=== PATIENT | female | born 1960 | race Caucasian/White ===

== ENCOUNTER 2022-08-28 18:42 | Emergency (ER) | payer BC, MEDICAID, SELFPAY ==
[2022-08-28 18:45] VITALS: BP 156/76; PULSE 58; RESP 16; TEMP 36.7; O2SAT 99; BMI 44.8
--- NOTE | 2022-08-28 19:06 | CRLHL7_ITS ---
For Patients: As a result of the Century Cures Act, medical imaging exams and procedure reports are released immediately into your electronic medical record. You may view this report before your referring provider. If you have questions, please contact your health care provider. INDICATION: Chest pain and dyspnea COMPARISON: December 25, 2010 TECHNIQUE: Two views of the chest were acquired FINDINGS: TUBES AND LINES: None. HEART AND MEDIASTINUM: The heart size is normal. The mediastinal contour appears normal for patient age.Sternotomy. Valve repair. LUNGS AND PLEURAL SPACES: The lungs appear normal.The pleural spaces are unremarkable. OSSEOUS STRUCTURES: Age-appropriate appearance. No acute focal finding. IMPRESSION: No evidence of active pulmonary disease. Dictated by Aman Nunez MD @ 08/28/2022 8:18:36 PM (Electronically Signed)
--- NOTE | 2022-08-28 19:09 | ED_ITS ---
HPI - General Adult General Chief complaint: Back Injury/Pain Stated complaint: breathing issues Time Seen by Provider: 08/28/22 18:44 History of Present Illness HPI narrative: This 61-year-old female comes in from clinic for evaluation because of pain across her back that radiates around to her left chest. This pain is been present for the past week. The patient states that she can reproduce the pain by taking a deep breath and by performing certain movements. She does not report any nausea, vomiting, lightheadedness, shortness of breath, diaphoresis, or exercise intolerance. She does have a history of a valve replacement. She states that she has a connective tissue disorder and reports a history of pericarditis. Her symptoms today are distinctly reproducible with deep breath and with certain movements. She arrives here with normal vital signs. Related Data Home Medications Medication Instructions Recorded Confirmed diltiazem HCl 120 mg 120 mg PO DAILY 08/28/22 08/28/22 capsule,extended release 24 hr duloxetine 20 mg capsule,delayed 20 mg PO DAILY 08/28/22 08/28/22 release levothyroxine 137 mcg tablet 137 mcg PO DAILY 08/28/22 08/28/22 warfarin 10 mg tablet mg PO 08/28/22 Previous Rx's Medication Instructions Recorded methylprednisolone 4 mg tablets in See Rx Instructions PO .COMPLEX 08/28/22 a dose pack (Medrol (Jay Jay)) #21 ea Allergies Allergy/AdvReac Type Severity Reaction Status Date / Time Latex, Natural Rubber Allergy Mild Itchiness Verified 08/28/22 18:53 morphine Allergy Mild Itchiness Verified 08/28/22 18:53 dairy AdvReac Mild Inflammatio Uncoded 08/28/22 18:53 n Review of Systems Status of ROS: Reports: 10 or more systems reviewed and unremarkable except as noted in History and below Narrative: Constitutional: No fevers, no weight gain or loss. Eyes: No discharge. No vision changes. HENT: No congestion, no sore throat, no ear pain. Cardiovascular: No palpitations. Chest: She reports pain across her back that wraps around to the left side of the chest. This pain is reproducible with deep breathing and with certain movements. Respiratory: No shortness of breath, no wheezes, no cough. Gastrointestinal: No abdominal pain, no vomiting, no diarrhea. Genitourinary: No dysuria, no hematuria. Musculoskeletal: Normal range of motion. Skin: No rashes, no pruritis. Neurological: No dizziness, weakness, sensory change, speech change. Endo/Heme/Allergies: No bruising or bleeding. No polydipsia. Pysch: no suicidality, no anxiety, no insomnia. All other systems reviewed and are negative. [facility] Social History Smoking Status: Never smoker Do you use any of these nicotine containing products: None Second hand tobacco smoke exposure: No How often do you have a drink containing alcohol: never AUDIT-C Alcohol total score: 0 Non-prescribed substance use: denies use Exam Narrative: Exam Narrative: Constitutional: Well-developed, well-nourished, no acute distress. HEENT: Normocephalic, atraumatic. Neck: Normal range of motion. Nontender. Supple. Heart: Regular. No murmurs. Normal rate. Intact distal pulses. Lungs: Clear to auscultation. No chest discomfort. No wheezes, rhonchi, or rales. Abdomen: Normal bowel sounds. Nontender. No rebound tenderness. Genitalia: Deferred. Back: No midline tenderness. Normal range of motion. Extremities: Normal range of motion. No injury. Skin: Intact. No rash. Warm. No erythema or pallor. Neurologic: No altered sensation. No weakness. Alert and oriented. Psychiatric: No suicidality. No anxiety or depression. No insomnia. Nursing notes and vitals signs are reviewed. Const: Vital Signs, click to edit/add: Vital Signs - 24 hr 08/28/22 18:45 Temperature 98.1 F Pulse Rate [Pulse Oximeter] 58 L Respiratory Rate 16 Blood Pressure [Ri ght Upper Arm] 156/76 H Pulse Oximetry 99 Oxygen Delivery Me thod Room Air Course Vital Signs Vital signs: Initial Vital Signs Temperature 98.1 F 08/28/22 18:45 Temperature Source Temporal Artery Scan 08/28/22 18:45 Pulse Rate 58 L 08/28/22 18:45 Respiratory Rate 16 08/28/22 18:45 Blood Pressure 156/76 H 08/28/22 18:45 Blood Pressure Mean 102 08/28/22 18:45 Blood Pressure Position Supine 08/28/22 18:45 Pulse Oximetry 99 08/28/22 18:45 Oxygen Delivery Method Room Air 08/28/22 18:45 Vital Signs Temperature 98.1 F 08/28/22 18:45 Pulse Rate 58 L 08/28/22 18:45 Respiratory Rate 16 08/28/22 18:45 Blood Pressure 156/76 H 08/28/22 18:45 Pulse Oximetry 99 08/28/22 18:45 Oxygen Delivery Method Room Air 08/28/22 18:45 Temperature 98.1 F 08/28/22 18:45 Pulse Rate 58 L 08/28/22 18:45 Respiratory Rate 16 08/28/22 18:45 Blood Pressure 156/76 H 08/28/22 18:45 Pulse Oximetry 99 08/28/22 18:45 Oxygen Delivery Method Room Air 08/28/22 18:45 Medical Decision Making MDM Narrative Medical decision making narrative: This patient comes in reporting reproducible pain across her back and into the left upper chest. She can reproduce this pain with a deep breath and with certain movements. She arrives with normal vital signs. 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 She is also had pericarditis in the past. EKG here shows normal sinus rhythm with no sign of ST or T-wave abnormalities. Labs are acquired and returned with troponin at 0, a normal B type natriuretic peptide, no leukocytosis. Her chest x-ray also shows no findings of acute cardiopulmonary disease. It is noted that her sed rate is elevated at 67 and her C reactive protein at 6.1. Her symptoms are reproducible suggesting chest wall etiology. Her elevated acute phase reactants may be a flare-up of her mixed connective tissue disorder. The patient did receive an oral dose of dexamethasone 10 mg and a prescription for Medrol Dosepak. I advised her to follow-up with her primary physician for ongoing management. Lab Data Labs: Lab Results 08/28/22 08/28/22 Range/Units 19:32 19:32 WBC 8.02 (4.50-11.00) K/uL RBC 4.32 (4.00-5.20) m/uL Hgb 11.3 L (12.0-16.0) gm/dL Hct 35.8 (33.0-51.0) % MCV 83 (80-100) fL MCH 26 (26-34) pg MCHC 32 (32-36) gm/dL RDW Coeff of Bozena 14.3 (11.5-15.5) % Plt Count 280 (140-440) K/uL Neut % (Auto) 76.7 H (42.0-72.0) % Lymph % (Auto) 16.0 L (20-44) % [place] % (Auto) 6.0 (0.0-11.0) % Eos % (Auto) 1.0 (0.0-7.0) % Baso % (Auto) 0.2 (0.0-3.0) % Neut # (Auto) 6.20 (1.7-7.0) K/uL Lymph # (Auto) 1.30 (0.90-2.90) K/uL [place] # (Auto) 0.50 (0.00-0.90) K/UL Eos # (Auto) 0.08 (0.00-0.50) K/uL Baso # (Auto) 0.02 (0.00-0.30) K/uL ESR 67 H (2-20) mm/hr INR 2.17 H (0.91-1.10) Sodium 137 (135-149) mmol/L Potassium 4.3 (3.6-5.1) mmol/L Chloride 102 (96-114) mmol/L Carbon Dioxide 31 (20-32) mmol/L BUN 13 (7-30) mg/dL Creatinine 1.0 (0.5-1.5) mg/dL Estimated Creat Clear 63.08 Estimated GFR 64 ml/min Glucose 97 (60-115) mg/dL Calcium 9.0 (8.4-10.6) mg/dL C-Reactive Protein 6.1 H (0.5-1.0) mg/dL NT-Pro-B Natriuret Pep 485 Cancelled pg/mL POC Troponin I 0.00 L (0.01-0.04) ng/ml Imaging Data Chest x-ray: Radiologist's impression: No evidence of active pulmonary disease. ECG Data Attestation: I personally reviewed and interpreted this ECG as follows: Interpretation: Normal sinus rhythm. Rate is 55 beats per minute. There are no ST or T-wave abnormalities. Discharge Plan Discharge Clinical Impression: Acute chest wall pain, Connective tissue disorder, Thoracic back pain Patient Disposition: Home, Self-Care Condition: Unchanged Additional Instructions: Take medication as prescribed. Follow up with primary physician for ongoing management. Return if worsening. Prescriptions: New methylprednisolone [Medrol (Jay Jay)] 4 mg tablets,dose pack See Rx Instructions .ROUTE .COMPLEX Qty: 21 0RF Rx Instructions: orally per package directions No Action levothyroxine 137 mcg tablet 137 mcg PO DAILY warfarin 10 mg tablet PO diltiazem HCl 120 mg capsule,extended release 24hr 120 mg PO DAILY duloxetine 20 mg capsule,delayed release(DR/EC) 20 mg PO DAILY Follow Up/Referrals: Dorota Loera MD [Primary Care Provider] - Stand Alone Forms: [employer] Info Instructions
[2022-08-28 19:41] LABS: Basophils Absolute Auto 0.02 K/uL (0.00-0.30); Basophils Percent Auto 0.2 % (0.0-3.0); Eosinophils Absolute Auto 0.08 K/uL (0.00-0.50); Hematocrit 35.8 % (33.0-51.0); Hemoglobin* 11.3 gm/dL (12.0-16.0); Immature Granulocytes Abs Auto 0.01 K/uL (0.00-0.30); Immature Granulocytes Pct Auto 0.1 %; Mean Corpuscular HGB Conc 32 gm/dL (32-36); Mean Corpuscular Hemoglobin 26 pg (26-34); Mean Corpuscular Volume 83 fL (80-100); Neutrophils Percent Auto 76.7 % (42.0-72.0); Platelet Count* 280 K/uL (140-440); RDW Coefficient of Variation % 14.3 % (11.5-15.5); Red Blood Count 4.32 m/uL (4.00-5.20); White Blood Count* 8.02 K/uL (4.50-11.00)
[2022-08-28 19:43] LABS: Slide Review Reflex No
[2022-08-28 19:51] LABS: Chloride* 102 mmol/L (96-114)
[2022-08-28 19:52] LABS: Potassium* 4.3 mmol/L (3.6-5.1); Sodium* 137 mmol/L (135-149)
[2022-08-28 19:54] LABS: Est. Creatinine Clearance* 63.08; Estimated Glomerular Filt Rate 64 ml/min
[2022-08-28 19:55] LABS: Blood Urea Nitrogen* 13 mg/dL (7-30); Carbon Dioxide* 31 mmol/L (20-32); Glucose* 97 mg/dL (60-115); INR 2.17 (0.91-1.10); Prothrombin Time 25.3 Seconds
[2022-08-28 19:58] LABS: C Reactive Protein* 6.1 mg/dL (0.5-1.0)
[2022-08-28 20:05] LABS: NT Pro B Type NatriureticPept* 485 pg/mL
[2022-08-28 20:22] LABS: Erythrocyte SedimentationRate* 67 mm/hr (2-20)
[2022-08-28] MEDS: dexAMETHasone 10 MG/ML inj PO (21:00)
[2022-08-28 21:11] VITALS: BP 135/78; PULSE 65; PULSE 84; RESP 16; TEMP 36.7; O2SAT 99
[2022-08-28 21:13] VITALS: BP 135/78; PULSE 65; PULSE 84; RESP 16; TEMP 36.7
== END 2022-08-28 21:13 | disposition home or self-care (01) ==
PROVIDERS: Emergency Provider Emergency Medicine Emergency Medical Services; PCP Family Medicine
DX: R07.89 Other chest pain (principal); M54.6 Pain in thoracic spine; M35.89 Other specified systemic involvement of connective tissue
CPT/HCPCS: 36415; 71046; 80048; 83880; 84484; 85025; 85610; 85651; 86140; 93005; 99284; J1100

== ENCOUNTER 2023-08-30 20:50 | Emergency (ER) | payer BC, SELFPAY ==
[2023-08-30 20:55] VITALS: BP 183/77; PULSE 55; RESP 16; TEMP 35.9; O2SAT 95; BMI 44.5
--- NOTE | 2023-08-30 21:06 | ED.HA ---
HPI - Headache General Time Seen by Provider: 21:06 Date Seen: 08/30/23 Chief Complaint: Headache/Migraine Stated Complaint: Headache Time Seen by Provider: 08/30/23 20:56 Source: patient and RN notes reviewed Mode of arrival: ambulatory Limitations: no limitations History of Present Illness HPI Narrative: This 62-year-old female is coming in with complaint of a headache in her frontal head associated with visual changes. She states that she was not having blurry vision it is like she could not get her eyes to focus, it was not double vision. She states her parents had history of strokes. She had the visual changes 1st, then developed the headache. She has history of migraines but this feels different, is never had visual issues like this. Her eyes have cleared already. This started around 815 tonight. We are seeing her about an hour later. She denies any acute fevers chills, had mild respiratory illness over week ago, no residual issues noted. She has noted no changes in her speech, again no true blurry or double vision. She just felt like her eyes would not focus together is the best she can explain it. There was never any incoordination or numbness tingling or weakness of extremities. Typically she will disuse Tylenol for her headache, has not taken anything. She is on Coumadin with aortic valve replacement and history of paroxysmal atrial fibrillation. She does have a connective tissue disorder. No trauma. MD elicited complaint: headache Related Data Home Medications Medication Instructions Recorded Confirmed diltiazem HCl 120 mg 120 mg PO DAILY 08/28/22 08/28/22 capsule,extended release 24 hr duloxetine 20 mg capsule,delayed 20 mg PO DAILY 08/28/22 08/28/22 release levothyroxine 137 mcg tablet 137 mcg PO DAILY 08/28/22 08/28/22 magnesium oxide 500 mg capsule 500 mg PO DAILY 08/28/22 08/28/22 warfarin 10 mg tablet 10 mg PO DIRECTED 08/28/22 08/28/22 Previous Rx's Medication Instructions Recorded methylprednisolone 4 mg tablets in See Rx Instructions PO .COMPLEX 08/28/22 a dose pack (Medrol (Jay Jay)) #21 ea Allergies Allergy/AdvReac Type Severity Reaction Status Date / Time Latex, Natural Rubber Allergy Mild Itchiness Verified 08/28/22 21:34 morphine Allergy Mild Itchiness Verified 08/28/22 21:34 lactase [From Dairy Aid] AdvReac Mild Gi Upset Verified 08/28/22 21:35 Review of Systems Status of ROS: Reports: 6 or more systems reviewed and unremarkable except as noted in History and below [facility] Medical History (Updated 08/30/23 @ 23:08 by Awilda Tomlin MD) Connective tissue disease ?M35.9 - Systemic involvement of connective tissue, unspecified (ICD-10) Kidney stone ?N20.0 - Calculus of kidney (ICD-10) Anticoagulation monitoring, INR range 2-3 ?Z79.01 - long term care social worker (current) use of anticoagulants (ICD-10) Subacute pericarditis ?I30.9 - Acute pericarditis, unspecified (ICD-10) Pericardial effusion, acute ?I30.9 - Acute pericarditis, unspecified (ICD-10) Pleural effusion ?J90 - Pleural effusion, not elsewhere classified (ICD-10) Vitamin D deficiency ?E55.9 - Vitamin D deficiency, unspecified (ICD-10) Paroxysmal A-fib ?I48.0 - Paroxysmal atrial fibrillation (ICD-10) Carpal tunnel syndrome ?G56.00 - Carpal tunnel syndrome, unspecified upper limb (ICD-10) Hypothyroidism ?E03.9 - Hypothyroidism, unspecified (ICD-10) Sleep apnea ?G47.30 - Sleep apnea, unspecified (ICD-10) Aortic valve stenosis ?I35.0 - Nonrheumatic aortic (valve) stenosis (ICD-10) Surgical History History of aortic valve replacement ?Z95.2 - Presence of prosthetic heart valve (ICD-10) Social History Smoking Status: Never smoker Do you use any of these nicotine containing products: None Second hand tobacco smoke exposure: No How often do you have a drink containing alcohol: never AUDIT-C Alcohol total score: 0 Non-prescribed substance use: denies use Exam Const: Vital Signs, click to edit/add: Vital Signs - 24 hr 08/30/23 20:55 Temperature 96.6 F L Pulse Rate [Left F emoral] 55 L Respiratory Rate 16 Blood Pressure [Ri ght Upper Arm] 183/77 H Pulse Oximetry 95 Oxygen Delivery Me thod Room Air This 62-year-old female was initially holding her hands along the sides of her face covering her eyes. She is able to take her hands away, pupils are equal round reactive, extraocular muscles intact, conjugate gaze, no visual field defect. Symmetrical facial function, speech is normal. TMs canals normal. Neck supple, no adenopathy, no midline tenderness. Lungs are clear no wheezing or crackles. CV regular rate and rhythm, do not hear any significant murmur, normal S1-S2, no S3-S4. Abdomen is soft, nontender. Moving extremities equally, strength, sensation normal. No tremors, no dysmetria. Patient was ambulatory into the ED of her own accord. Documenting provider has reviewed patient's vital signs: yes Course Course ED Course: Will do baseline head CT on this patient as she is on underlying anticoagulation, obtain labs. As far as pain management, she would like Tylenol. Did discuss Toradol, 1 time dose would not be concerning. This point she wants Tylenol, will initiate a L of IV fluids and proceed with labs and head CT. This is doubtful that this is a presentation of stroke pathology but will observe her here. This could be migraine headache with visual changes, we discussed the continue move of migraine headaches that even can present in a singular patient over time. Reevaluation(s) Time of Reevaluation #1: 22:02 Reevaluation #1: Reviewed her head CT has been read as negative for any acute intracranial pathology. Her white blood count is normal, hemoglobin mildly low at 11.1, reviewed this with her. I will try to look up prior labs before coming back. We are still awaiting other lab results. She is feeling better, wondering about going home. She still have some IV fluids to finish. Time of Reevaluation #2: 23:07 Reevaluation #2: Reviewed that the labs are normal, reviewed her hemoglobin is stable, was 11.3 in 2022 1 year ago. She is feeling better. Wanting to go home. We did discuss if she should start to have recurrent symptoms like this with her headache, possibly see Neurology. At this time, she is stable for discharge Vital Signs Vital signs: Initial Vital Signs Temperature 96.6 F L 08/30/23 20:55 Temperature Source Temporal Artery Scan 08/30/23 20:55 Pulse Rate 55 L 08/30/23 20:55 Pulse Rhythm Regular 08/30/23 20:55 Respiratory Rate 16 08/30/23 20:55 Blood Pressure 183/77 H 08/30/23 20:55 Blood Pressure Mean 112 H 08/30/23 20:55 Blood Pressure Position Sitting 08/30/23 20:55 Pulse Oximetry 95 08/30/23 20:55 Oxygen Delivery Method Room Air 08/30/23 20:55 Vital Signs Temperature 96.6 F L 08/30/23 20:55 Pulse Rate 55 L 08/30/23 20:55 Respiratory Rate 16 08/30/23 20:55 Blood Pressure 183/77 H 08/30/23 20:55 Pulse Oximetry 95 08/30/23 20:55 Oxygen Delivery Method Room Air 08/30/23 20:55 Temperature 96.6 F L 08/30/23 20:55 Pulse Rate 55 L 08/30/23 20:55 Respiratory Rate 16 08/30/23 20:55 Blood Pressure 183/77 H 08/30/23 20:55 Pulse Oximetry 95 08/30/23 20:55 Oxygen Delivery Method Room Air 08/30/23 20:55 MDM - Headache Lab Data Attestation: I reviewed the patient's lab results. Lab results narrative: Hemoglobin 11.3 on 08/28/2022, thus stable. Labs: Lab Results 08/30/23 08/30/23 Range/Units 21:25 21:28 WBC 6.29 (4.50-11.00) K/uL RBC 4.30 (4.00-5.20) m/uL Hgb 11.1 L (12.0-16.0) gm/dL Hct 35.4 (33.0-51.0) % MCV 82 (80-100) fL MCH 26 (26-34) pg MCHC 31 L (32-36) gm/dL RDW Coeff of [place]zena 14.8 (11.5-15.5) % Plt Count 251 (140-440) K/uL Neut % (Auto) 65.7 (42.0-72.0) % Lymph % (Auto) 24.5 (20-44) % [place] % (Auto) 6.8 (0.0-11.0) % Eos % (Auto) 2.2 (0.0-7.0) % Baso % (Auto) 0.6 (0.0-3.0) % Neut # (Auto) 4.13 (1.7-7.0) K/uL Lymph # (Auto) 1.54 (0.90-2.90) K/uL [place] # (Auto) 0.40 (0.00-0.90) K/UL Eos # (Auto) 0.14 (0.00-0.50) K/uL Baso # (Auto) 0.04 (0.00-0.30) K/uL Abs Immat Gran (auto) 0.01 (0.00-0.30) K/uL Imm/Tot Granulo (auto) 0.2 % INR 2.96 H (0.91-1.10) Sodium 139 (135-149) mmol/L Potassium 3.7 (3.6-5.1) mmol/L Chloride 109 (96-114) mmol/L Carbon Dioxide 30 (20-32) mmol/L Anion Gap 0 L (7-15) mEq/L BUN 21 (7-30) mg/dL Creatinine 0.9 (0.5-1.5) mg/dL Estimated Creat Clear 62.27 Estimated GFR 72 ml/min Glucose 97 (60-115) mg/dL Lactate 0.6 (0.5-1.9) mmol/L Calcium 8.8 (8.4-10.6) mg/dL Total Bilirubin 0.3 (0.1-1.5) mg/dL AST 27 (12-35) U/L ALT 20 (4-35) U/L Alkaline Phosphatase 100 (40-150) U/L Total Protein 7.3 (6.0-8.3) g/dL Albumin 4.3 (3.3-5.0) g/dL Procalcitonin 0.04 (<0.50) ng/mL Lab Acknowledgement Test Added Imaging Data CT scan - head: Attestation: I have reviewed the pertinent imaging results. Radiologist's impression: Patient: ALFA FLORES Facility:?[facility] [place] Patient ID:?[id number] Site Patient ID:?[id number]. Site :?[id number] Study:?CT Head W/O-08/30/2023 9:45:16 PM Ordering Physician:RUEL Final Report: INDICATION: Headache. TECHNIQUE: Noncontrast CT images of the brain. COMPARISON: None. FINDINGS: Mild diffuse cerebral volume loss. No mass effect or midline shift. The hua white differentiation is maintained. No acute intracranial hemorrhage or pathologic extra-axial fluid collection. Scattered hypoattenuation in the supratentorial white matter, typical for mild chronic microvascular ischemic changes. Intracranial atherosclerotic calcifications. The globes are symmetric. The calvarium is intact. Minimal ethmoid sinus mucosal thickening. The mastoid air cells are clear. IMPRESSION: No acute intracranial hemorrhage or mass effect. Please note that all CT scans at this facility use dose modulation, iterative reconstruction, and/or weight-based dosing when appropriate to reduce radiation dose to as low as reasonably achievable. Dictated by Les Burgess MD @ 08/30/2023 9:53:09 PM (Electronic Signature) Discharge Plan Discharge Clinical Impression: Headache Patient Disposition: Home, Self-Care Condition: Stable Instructions: General Headache (ED) Additional Instructions: Recommend going home and rest, can take Tylenol if there is any return of your headache. If you have recurrent symptoms that are not responsive to Tylenol, have concerning symptoms to you associated with your headache if it returns, please seek re-evaluation. Activity Level: Activity as Tolerated Prescriptions: No Action levothyroxine 137 mcg tablet 137 mcg PO DAILY warfarin 10 mg tablet 10 mg PO DIRECTED Patient Comments: TAKE 1.5 TABLETS BY MOUTH EVERY THURSDAY AND 1 TABLET ALL OTHER DAYS IN THE EVENING OR DIRECTED diltiazem HCl 120 mg capsule,extended release 24hr 120 mg PO DAILY duloxetine 20 mg capsule,delayed release(DR/EC) 20 mg PO DAILY methylprednisolone [Medrol (Jay Jay)] 4 mg tablets,dose pack See Rx Instructions .ROUTE .COMPLEX Qty: 21 0RF Rx Instructions: orally per package directions magnesium oxide 500 mg capsule 500 mg PO DAILY Follow Up/Referrals: Dorota Loera MD [Primary Care Provider] - Stand Alone Forms: [employer] Info Instructions
--- NOTE | 2023-08-30 21:14 | CT_ITS ---
Patient: ALFA FLORES Facility:?[facility] Patient ID:?[id number] Site Patient ID:?[id number]. Site :?[id number] Study:?CT-Head W/O-08/30/2023 9:45:16 PM Ordering Physician:RUEL Final Report: INDICATION: Headache. TECHNIQUE: Noncontrast CT images of the brain. COMPARISON: None. FINDINGS: Mild diffuse cerebral volume loss. No mass effect or midline shift. The hua white differentiation is maintained. No acute intracranial hemorrhage or pathologic extra-axial fluid collection. Scattered hypoattenuation in the supratentorial white matter, typical for mild chronic microvascular ischemic changes. Intracranial atherosclerotic calcifications. The globes are symmetric. The calvarium is intact. Minimal ethmoid sinus mucosal thickening. The mastoid air cells are clear. IMPRESSION: No acute intracranial hemorrhage or mass effect. Please note that all CT scans at this facility use dose modulation, iterative reconstruction, and/or weight-based dosing when appropriate to reduce radiation dose to as low as reasonably achievable. Dictated by Les Burgess MD @ 08/30/2023 9:53:09 PM Signed by:?Les Burgess MD @08/30/2023 9:53:09 PM (Electronic Signature)
--- OUTSIDE RECORDS SUMMARY | 2023-08-30 21:26 | XMS_ITS | Encounter Summary ---
Author Name Unknown Organization [facility] Address [address] [place] [id number] Care Team Providers Care Superintendent Refuse Disposal Name Role Phone Unavailable Primary Care Provider Unavailabl e Encounter Details Date Type Department Care Team (Latest Contact Info) Description 08/17/2023 11:51 AM CDT - 08/17/2023 12:17 PM CDT Hospital Encounter Department of Laboratory Medicine and Pathology, [facility] in [place], [place] [address] [place] [address] Farshad Guzman M.B.B.S., M.D. [address] [place] [phone] Hematuria; Benign Essential Microscopic Hematuria Discharge Disposition: Home or Self Care Social History Tobacco Use Types Packs/Day Years Used Date Smoking Tobacco: Never Smokeless Tobacco: Never Alcohol Use Standard Drinks/Week Comments No 0 (1 standard drink = 0.6 oz pur e alcohol) Social Connection and Isolat ion Panel [NHANES] Answer Date Recorded Frequency of Communication w ith Friends and Family More than three times a week 12/31/2018 Frequency of Social Gatherin gs with Friends and Family More than three times a week 12/31/2018 Attends Yarsani Services More than 4 times per year 12/31/2018 Active Member of Clubs or Organizations Yes 12/31/2018 Attends Club or Organization Meetings Not on viola e 12/31/2018 Marital Status 12/31/2018 AUDIT-C Answer Date Recorded Frequency of Alcohol Consumption Never 12/31/2018 Average Number of Drinks Patient declined 2018 Frequency of Binge Drinking Never 12/16 Overall Financial Resource Strain (CARDIA) Answe r Date Recorded Difficulty of Paying Living Expenses Not hard at all 12/31/2018 [facility] - Occupational Stress Questionnaire Answer Date Recorded Feeling of Stress Rather much 12/31/2018 Exercise Vital Sign Answer Date Recorde d Days of Exercise per Week 6 days 2018 Minutes of Exercise per Session 50 min 12/31/2018 Hunger Vital Sign Answer Date Recorded Worried About Running Out of Food in the Last Ye ar Never true 12/31/2018 Ran Out of Food in the Last Year Never true 12/31/2018 PRAPARE - Transportation Answer Date Re corded Lack of Transportation (Medical) No 12/31/2018 Lack of Transportation (Non-Medical) No 12/31/2018 Nutrition Answer Date Recorded Nutrition: EVOO Fat Source Unknown 07/23 Nutrition: Servings of Fruits/Vegetables per Day Not on file 07/23/2020 Dental Answer Date Recorded Dental: Regular Dentist Unknown 07/26/19 21 Education Answer Date Recorded What is the highest level of school you have completed or the highest degree you have received? Master's degree (e.g., MA, MS, Murphy, MEd, ADJUSTER, BRIAN) 12/31/2018 Sex and Gender Information Value Date Recorded Sex Assigned at Female 06/22/2018 1:14 PM DEPARTMENTAL BUYER Gender Identity Female 06/22/2018 1:14 PM DEPARTMENTAL BUYER Sexual Orientation Straight 06/22/2018 1: 14 PM DEPARTMENTAL BUYER documented as of this encounter Medications at Time of Discharge Medication Sig Dispensed Refills Start Date End Date acetaminophen (TYLENOL) 500 mg tablet Take by mouth as needed. 03/31/2019 cholecalciferol (VITAMIN D3) tablet Take 5,000 Units by mouth daily. 01/26/2018 clindamycin (CLEOCIN) 150 mg capsule 150 mg. PRN prior to dental procedures 09/26/2014 dilTIAZem CD (CARDIZEM CD/CARTIA XT) 120 mg 24 hr capsule Take 120 mg by mouth at bedtime. 01/19/2018 DULoxetine (CYMBALTA) [address] capsule Take 20 mg by mouth daily. 12/15/2017 enoxaparin (LOVENOX) 40 mg/0.4 mL injection as needed. Pt takes before procedures or surgery 03/17/2019 Lactobacillus acidophilus capsule Take 1 capsule by mouth every morning. levothyroxine (SYNTHROID, LEVOTHROID) 137 mcg tablet Take 137 mcg by mouth every morning before breakfast. 04/30/2018 pantoprazole (PROTONIX) 40 mg EC tabletIndications:Yaneth carditis (HCC),Systemic Involvement Of Connective Tissue Unspecified (HCC),Morbid Obesity Body Mass Index 45.0-49.9 Adult (HCC),Prosthesis Aortic Valve,Nonrheumatic Aortic Valve Stenosis Take 1 tablet (40 mg total) by mouth every morning before breakfast. While on steroids (prednisone > 10 mg daily) or any NSAID therapy 30 tablet 11 11/03/2022 11/03/2023 polyethylene glycol-electrolytes (GoLYTELY) 236-22.74-6.74 -5.86 gram solution Drink 1st portion of prep at 6 PM the evening before. 2nd portion must be started 3 hours before and finished 2 hours prior to report time 4000 mL 10/28/2022 rosuvastatin (CRESTOR) 5 mg tabletIndications:Deat h Cardiac Sudden Family History,Hyperlipidemia Mixed,Morbid Obesity Body Mass Index 45.0-49.9 Adult (HCC) Take 1 tablet (5 mg total) by mouth daily. 90 tablet 3 11/03/2022 11/03/2023 warfarin (COUMADIN) 10 mg tablet Take 15 mg by mouth at bedtime. Pt takes 15 mg on Thursday and 10mg the rest of the day 02/10/2018 documented as of this encounter Plan of Treatment Not on file documented as of this encounter Goals Goal Patient Goal Type Associated Problems Recent Progress Patient-Stated? Author 3rd Opinion General Yes Rhonda Villalta, M.S.N., R.N. Note: Patient has seen Dr. Alex in [place] and Dr. Chen in [place] for Rheumatology care. She has been told many diagnosis' (including CTD, Sarcoidosis, Lupus and Panniculitis). She is wanting our opinion and some help with Diagnosis and future treatment recommendations. documented as of this encounter Procedures Procedure Name Priority Date/Time Associated Diagnosis Comments RENAL FUNCTION PANEL, S Routine 08/17/2023 12:05 PM CDT Hematuria Benign Essential Microscopic Hematuria documented in this encounter Results * Renal Function Panel (08/17/2023 12:05 PM CDT) Potassium, S 4.4 3.6 - 5.2 mmol/L 08/17/2023 2:23 PM CDT DTL Sodium, S 137 135 - 145 mmol/L 08/17/2023 2:23 PM CDT DTL Chloride, S 99 98 - 107 mmol/L 08/17/2023 2:23 PM CDT DTL Bicarbonate, S 26 22 - 29 mmol/L 08/17/2023 2:23 PM CDT DTL Anion Gap 12 7 - 15 08/17/2023 2:23 PM CDT DTL BUN (Blood Urea Nitrogen), S 18 6 - 21 mg/dL 08/17/2023 2:23 PM CDT DTL Creatinine 1.01 0.59 - 1.04 mg/dL 08/17/2023 2:23 PM CDT DTL Estimated GFR (eGFR) 63 >=60 mL/min/BSA 08/17/2023 2:23 PM CDT DTL Comment: Estimated GFR calculated using the 2020 CKD_EPI creatinine equation. Calcium, Total, S 9.0 8.8 - 10.2 mg/dL 08/17/2023 2:23 PM CDT DTL Glucose, S 91 70 - 140 mg/dL 08/17/2023 2:23 PM CDT DTL Albumin, S 4.6 3.5 - 5.0 g/dL 08/17/2023 2:23 PM CDT DTL Phosphorus (Inorganic), S 3.1 2.5 - 4.5 mg/dL 08/17/2023 2:23 PM CDT DTL Blood (Blood, Venous) 08/17/2023 12:05 PM CDT 08/17/2023 12:44 PM CDT Cliff Sellers M.D. LAB BLOOD ADD- ON [facility] [address] [place] [address], [place] [facility] [address] [place] [address] documented in this encounter Visit Diagnoses Diagnosis Hematuria Benign Essential Microscopic Hematuria documented in this encounter
--- OUTSIDE RECORDS SUMMARY | 2023-08-30 21:26 | XMS_ITS | Encounter Summary ---
Author Name Unknown Organization [facility] Address [address] [place] [address] Care Team Providers Care Maintenance Apprentice Name Role Phone Unavailable Primary Care Provider Unavailabl e Reason for Referral * Outpatient (Routine) - Authorized Specialty Diagnoses / Procedures Referred By Brigido byrne Referred To Contact Nephrology and Hypertension Mariano Ken M.B.B.S. [address] [place] [address] [facility] Referral ID Status Reason Start Date Expiration Date V isits Requested Visits Authorized [id number] Authorized 08/18/2023 02/16/2025 1 1 Reason for Visit * Outpatient (Routine) - Closed Specialty Diagnoses / Procedures Referred By Brigido byrne Referred To Contact Nephrology and Hypertension Diagnoses Hematuria Benign Essential Microscopic Hematuria Farshad Guzman M.B.BSandraSSandra, MCarlos [address] [place] [phone] [facility] Referral ID Status Reason Start Date Expiration Date Visits Re quested Visits Authorized [id number] Closed 11/09/2022 11/08/2025 1 1 Encounter Details Date Type Department Care Team (Latest Contact Info) Description 08/18/2023 3:30 PM CDT Office Visit Division of Nephrology and Hypertension in [place], [place] [address] [place] [phone] Mariano Ken M.B.B.S. [address] [place] [address] Hematuria; Benign Essential Microscopic Hematuria Social History Tobacco Use Types Packs/Day Years [...] than three times a week 12/31/2018 Attends Spiritism Services More than 4 times per year [...] Living Expenses Not hard at all 12/31/2018 [facility] Occupat ional Health - Occupational Stress [...] Master's degree (e.g., MA, MS, Murphy, MEd, MANAGER POOL, BRIAN) 12/31/2018 Sex and Gender Information Value Date Recorded Sex Assigned at Female 06/22/2018 1:14 PM CATHETERIZATION LABORATORY TECHNICIAN Gender Identity Female 06/22/2018 1:14 PM CATHETERIZATION LABORATORY TECHNICIAN Sexual Orientation Straight 06/22/2018 1: 14 PM CATHETERIZATION LABORATORY TECHNICIAN documented as of this encounter Last Filed Vital Signs Vital Sign Reading Time Taken Comments Blood Pressure - - Pulse - - Temperature 36.2 ??C (97.2 ??F) 08/18/2023 3:11 PM CD T Respiratory Rate - - Oxygen Saturation - - Inhaled Oxygen Concentration - - Weight 145 kg (319 lb 10.7 oz) 08/18/2023 3:11 P M CDT Height 171.7 cm (5' 7.6) 08/18/2023 3:11 PM CDT Body Mass Index 49.19 08/18/2023 3:11 PM CDT documented in this encounter Progress Notes * Mariano Ken M.B.B.SSandra - 08/18/2023 3:30 PM CDT Subjective: Mr. Peter is following up today for hematuria. Chief Complaint/Reason for Visit Denies any complains aside from headache. BP was high at other matthew does not have any complains. History: Ms. Reynolds is a pleasant 62 y.o. female who has been referred initially to our clinic last year forevaluation of long standing history of microscopic hematuria. In review of her UA they are remarkable for dipstick positive hematuria with 11-20 RBC in 06/2018. Repeat testing prior to visit today shows less than three RBC per high-power field on urine microscopy and dipstick test for hemoglobin waspositive. Similarly testing in 2019 and 2020 at outside facility shows dipstick positive hematuria with negative microscopy for RBCs. Testing from 2007 through 2017 does show microscopic hematuria. Cell The patient denies any history of gross hematuria. Imaging completed in January 2020 outside of our facility is consistent with a small calculus in the upper pole on the left which was nonobstructive. The CT scan was done for right flank pain evaluation. She is also noted to have small cyst in the left kidney which was noticed on CT scan with stone protocol done in March of 2014. She had presented to her primary care clinic with complaints of left flank area. Her symptoms were associated with increased urinary frequency without any nausea or vomiting or decreased appetite. Taking tamsulosin for a few days. It was suspected that she had passed a kidney stone and therefore the CT scan was unable to pick it up. Today she notes that she is under usual state of health. She does have indomethacin that she uses on as needed basis. She is also on Coumadin. History of nephrolithiasis:No however a left non obstructing calculus seen on imaging january 2020 on COMPUTED TOMOGRAPHY imaging completed for a different reason History of recent contrast exposure:No Chronic NSAID use:No Baseline creatinine: 1 mg/dL Objective: General. NAD. Cardiac. RRR. Nl S1/S2. Lungs. CTAB Lower extremity. No LE edema. 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 Peter has had intermittent microscopic hematuria for 3 decades per her. She has knownhistory of non obstructing renal stones as noted in the imaging tests completed in the past renal function is stable with creatinine of 1 mg/dL over the years Urine with mild elevation of UACR. Will plan to repeat UACR in 1 month ( patient will get this done at her PCP office and will fax it to us). UA this viist. ( Moderate hb/ RBCs<3). Renal US with benign appearing cyst in the left kidney. 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 ( Nl renal function, had mild elevation of UACR once. ( Which the patient will repeat in one month. Discussed genetic testing ( patient had concerns that insurance would not cover it. As long as the renal function is stable will continue to monitor ( no kidney biopsy at this time) BP was elevated this visit ( the patient reported that this is the first time her BP was high. Usually nl to lower border of nl and she had headache today. Will monitor. Morbid obesity: S/P AVR on warfarin. Discussed with Dr. Hutchison documented in this encounter Plan of Treatment Scheduled Orders Name Type Priority Associated Diagnoses Orde r Schedule CBC without Differential Lab Routine Hematuria Benign Essential Microscopic Hematuria Expected: 08/17/2024, Expires: 11/16/2024 Renal Function Panel Lab Routine Hematuria Benign Essential Microscopic Hematuria Expected: 08/17/2024, Expires: 11/16/2024 Parathyroid Hormone (PTH) Lab Routine Hematuria Benign Essential Microscopic Hematuria Expected: 08/17/2024, Expires: 11/16/2024 Urinalysis, with Microscopic: Urine, Midstream Lab Routine Hematuria Benign Essential Microscopic Hematuria Expected: 08/17/2024, Expires: 11/16/2024 Albumin, Random, Urine Lab Routine Hematuria Benign Essential Microscopic Hematuria Expected: 08/17/2024, Expires: 11/16/2024 Cystatin C with Estimated GFR Lab Routine Hematuria Benign Essential Microscopic Hematuria Expected: 08/17/2024, Expires: 11/16/2024 25-Hydroxyvitamin D2 and D3 Lab Routine Hematuria Benign Essential Microscopic Hematuria Expected: 08/17/2024, Expires: 11/16/2024 Protein/Creatinine Ratio, Random, Urine Lab Routine Hematuria Benign Essential Microscopic Hematuria Expected: 08/17/2024, Expires: 11/16/2024 Scheduled Referrals Name Type Priority Associated Diagnoses Order Schedule Nephrology and Hypertension office visit (clinic) Outpatient Referral Routine Expected: 08/17/2024, Expires: 11/16/2024 documented as of this encounter Goals Goal Patient Goal Type Associated Problems Recent Progress Patient-Stated? Author 3rd Opinion General Yes hRonda Villalta, M.S.N., R.N. Note: Patient has seen Dr. Alex in [place] and Dr. Chen in [place] for Rheumatology care. She has been told many diagnosis' (including CTD, Sarcoidosis, Lupus and Panniculitis). She is wanting our opinion and some help with Diagnosis and future treatment recommendations. documented as of this encounter Visit Diagnoses Diagnosis Hematuria Benign Essential Microscopic Hematuria documented in this encounter
--- OUTSIDE RECORDS SUMMARY | 2023-08-30 21:26 | XMS_ITS | Referral Summary ---
Author Name Unknown Organization [facility] Address [address] [place] [id number] Care Team Providers Care Ballpoint Pen Cartridge Tester Name Role Phone Unavailable Primary Care Provider Unavailabl e Source Comments Patient records contain information from all sites at [facility]. For routine questions regarding patient records, call [phone] during business hours, M-F 8:00 AM - 5:00 PM Central Time. Record requests for emergency care only can be directed to [phone] at any time.[facility] Encounters Date Type Department Care Team Description 08/18/2023 Documentation Division of Nephrology and Hypertension in [place], [place] [address] [place] [phone] Dequan Hutchison M.D. 08/18/2023 3:30 PM CDT Office Visit Division of Nephrology and Hypertension in [place], [place] [address] [place] [phone] Mariano Ken M.B.B.S. Hematuria; Benign Essential Microscopic Hematuria 08/17/2023 11:51 AM CDT - 08/17/2023 12:17 PM CDT Hospital Encounter Department of Laboratory Medicine and Pathology, [place], [place] [address] [place] [phone] Farshad Guzman M.B.BSandraSSandra, Nisreen Hematuria; Benign Essential Microscopic Hematuria Discharge Disposition: Home or Self Care 08/17/2023 11:51 AM CDT - 08/17/2023 12:17 PM CDT Hospital Encounter Department of Laboratory Medicine and Pathology, [place], [place] [address] [place] [phone] Farshad Guzman M.B.B.S., M.D. Hematuria; Benign Essential Microscopic Hematuria Discharge Disposition: Home or Self Care 08/17/2023 12:18 PM CDT - 08/17/2023 11:59 PM CDT Hospital Encounter Department of Radiology, [facility], in [place], [place] [address] [place] [phone] Farshad Guzman M.B.B.S., M.D. Hematuria; Benign Essential Microscopic Hematuria Discharge Disposition: Home or Self Care 08/14/2023 10:00 AM CDT Clinical Communication Virtual Review in [place], [place] 200 [place] [address] Pre-visit Intake 06/25/2023 Clinical Communication Department of Nephrology in [address] [phone] Farshad Guzman M.B.B.S., M.D. Reschedule from Last 3 Months Allergies Active Allergy Reactions Criticality Noted Date Comments Adhesive Tape-Silicones Rash 09/14/2006 Gluten Edema (Reselect Reaction) High 01/06/2019 Hydroxychloroquine Rash 08/03/2017 Lactose Edema (Reselect Reaction) High 01/06/2019 Latex, Natural Rubber Itching Low 08/28/2022 Morphine Itching 09/14/2006 Medications Medication Sig Dispensed Refills Start Date End Date Status cholecalciferol (VITAMIN D3) tablet Take 5,000 Units by mouth daily. 01/26/2018 Active clindamycin (CLEOCIN) 150 mg capsule 150 mg. PRN prior to dental procedures 09/26/2014 Active dilTIAZem CD (CARDIZEM CD/CARTIA XT) 120 mg 24 hr capsule Take 120 mg by mouth at bedtime. 01/19/2018 Active DULoxetine (CYMBALTA) [address] capsule Take 20 mg by mouth daily. 12/15/2017 Active levothyroxine (SYNTHROID, LEVOTHROID) 137 mcg tablet Take 137 mcg by mouth every morning before breakfast. 04/30/2018 Active warfarin (COUMADIN) 10 mg tablet Take 15 mg by mouth at bedtime. Pt takes 15 mg on Thursday and 10mg the rest of the day 02/10/2018 Active enoxaparin (LOVENOX) 40 mg/0.4 mL injection as needed. Pt takes before procedures or surgery 03/17/2019 Active acetaminophen (TYLENOL) 500 mg tablet Take by mouth as needed. 03/31/2019 Active Lactobacillus acidophilus capsule Take 1 capsule by mouth every morning. Active polyethylene glycol-electrolytes (GoLYTELY) 236-22.74-6.74 -5.86 gram solution Drink 1st portion of prep at 6 PM the evening before. 2nd portion must be started 3 hours before and finished 2 hours prior to report time 4000 mL 10/28/2022 Active rosuvastatin (CRESTOR) 5 mg tabletIndications:D eath Cardiac Sudden Family History,Hyperlipide radha Mixed,Morbid Obesity Body Mass Index 45.0-49.9 Adult (HCC) Take 1 tablet (5 mg total) by mouth daily. 90 tablet 3 11/03/2022 11/03/2023 Active pantoprazole (PROTONIX) 40 mg EC tabletIndications:P ericarditis (HCC),Systemic Involvement Of Connective Tissue Unspecified (HCC),Morbid Obesity Body Mass Index 45.0-49.9 Adult (HCC),Prosthesis Aortic Valve,Nonrheumatic Aortic Valve Stenosis Take 1 tablet (40 mg total) by mouth every morning before breakfast. 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/28/2022 Polyp Colon Adenomatous 10/28/2022 Nonrheumatic Aortic Valve Stenosis 06/22/2018 Hypothyroidism 06/22/2018 Benign Essential Microscopic Hematuria 4 Pericarditis Acute 04/06/2012 Effusion Pleural 04/06/2012 Overview: Overview: - chest CT 04/06/12: Moderate left and small right pleural effusions with compressive atelectasis in the lower lobes, left greater than right Polyp Colon 10/18/2009 Overview: Overview: Colonoscopy 10/2009 polyps repeat in 10 years Prosthesis Aortic Valve 10/24/2008 Atrial Fibrillation Paroxysmal 10/24/2008 Carpal Tunnel Syndrome 11/12/2007 Lymphedema Swelling Leg Social History Tobacco Use Types Packs/Day Years Used Date Smoking Tobacco: Never Smokeless Tobacco: Never Tobacco Cessation:Counseling Given: Not Answered Alcohol Use Standard Drinks/Week Comments No 0 (1 standard drink = 0.6 oz pur e alcohol) Social Connection and Isolat ion Panel [NHANES] Answer Date Recorded Frequency of Communication w ith Friends and Family More than three times a week 12/31/2018 Frequency of Social Gatherin gs with Friends and Family More than three times a week 12/31/2018 Attends [employer] More than 4 times per year [...] Living Expenses Not hard at all 12/31/2018 [facility] - Occupational Stress [...] Master's degree (e.g., MA, MS, Murphy, MEd, MARKETING COMMUNICATIONS MANAGER, BRIAN) 12/31/2018 Sex and Gender Information Value Date Recorded Sex 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 Gender Identity Female 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 Sexual Orientation Straight 06/22/2018 1: 14 PM MOTORCYCLE ASSEMBLER Last Filed Vital Signs Vital Sign Reading Time Taken Comments Blood Pressure 129/75 01/12/2023 5:15 PM CDT Pulse 50 01/12/2023 5:15 PM CDT Temperature 36.2 ??C (97.2 ??F) 08/18/2023 3:11 PM CD T Respiratory Rate 17 01/12/2023 5:15 PM CDT Oxygen Saturation 100% 01/12/2023 5:15 PM CDT Inhaled Oxygen Concentration - - Weight 145 kg (319 lb 10.7 oz) 08/18/2023 3:11 P M CDT Height 171.7 cm (5' 7.6) 08/18/2023 3:11 PM CDT Body Mass Index 49.19 08/18/2023 3:11 PM CDT Plan of Treatment Not on file Goals Goal Patient Goal Type Associated Problems Recent Progress Patient-Stated? Author 3rd Opinion General Yes Rhonda Villalta M.S.N., R.N. Note: Patient has seen Dr. Alex in [place] and Dr. Chen in [place] for Rheumatology care. She has been told many diagnosis' (including CTD, Sarcoidosis, Lupus and Panniculitis). She is wanting our opinion and some help with Diagnosis and future treatment recommendations. Medical Devices Implanted Type Area Inspector Plumbing Device Identifier Shelf Expiration Date Model / Serial / Lot Cardiac Valve Prosthesis-04/04 Implanted:2004 by Odilon North M.D. (Quantity not on file) Cardiac Valve Prosthesis Heart [id number] / [id number] / Description:Aortic Valve Per MagResource: Nonclinical testing has demonstrated the Medtronic Open Pivot Heart Valve (Models 500, 501, 503, and 505) is MR Conditional. It can be scanned safely under the following conditions: -Static magnetic field of 3 Amanda or less -Spatial gradient field of 720 Gauss/cm -Maximum whole body average specific absorption rate (NICOLA) of 2.9 W/kg for 15 minutes ([facility] 10/30/2022) Hardware E.G. Pins/Screws/Rods -11/15/2006 Implanted:2006 (Quantity not on file) Hardware e.g. pins/screws/r ods Right: Hand Description:Carpal tunnel coronado rgery hardware Knee Implant- 4 Implanted:2013 (Quantity not on file) Knee Implant Left: Knee Knee Implant-04/03/20 19 Implanted:2018 (Quantity not on file) Knee Implant Right: Knee Procedures Procedure Name Priority Date/Time Associated Diagnosis Comments US KIDNEYS BILATERAL WITH BLADDER RAD - Routine (most inpatients and all outpatients) 08/17/2023 1:03 PM CDT Hematuria Benign Essential Microscopic Hematuria DIPSTICK, U Routine 08/17/2023 12:12 PM CDT PH, U Routine 08/17/2023 12:12 PM CDT OSMOLALITY, U Routine 08/17/2023 12:12 PM CDT MICROSCOPIC AUTOMATED Routine 08/17/2023 12:12 PM CDT URINALYSIS WITH MICROSCOPIC Routine 08/17/2023 12:12 PM CDT Hematuria Benign Essential Microscopic Hematuria ALBUMIN, RANDOM, U Routine 08/17/2023 12 :12 PM CDT Hematuria Benign Essential Microscopic Hematuria RENAL FUNCTION PANEL, S Routine 08/17/2023 12:05 PM CDT Hematuria Benign Essential Microscopic Hematuria EXTI THYROID-STIMULATIN G HORMONE-SENSITIVE (S-TSH), S Routine 03/05/2023 3:30 PM CDT COLONOSCOPY Routine 01/12/2023 4:12 PM CDT Polyp Colon Adenomatous LIPID PANEL, S Routine 01/12/2023 9:13 AM CDT Hyperlipidemia Mixed from Last 3 Months or Most Recently Relevant to Health Maintenance Results * US Kidneys Bilateral with Bladder (08/17/2023 1:03 PM CDT) Anatomical Region Laterality Modality Abdomen, Renal, Ultrasound R ST LOS, Ultrasound ARZ LOS, Ultrasound FLA LOS Bilateral Ultrasound Impressions 08/17/2023 1:25 PM CDT Benign-appearing cyst in the left kidney. Otherwise the kidneys have a normal sonographic appearance. Narrative 08/17/2023 1:25 PM CDT EXAM: US KIDNEYS BILATERAL WITH BLADDER COMPARISON: CT urogram 07/02/2018. FINDINGS: Right kidney: 11.2 cm. Cortical thickness: Normal. Parenchymal echogenicity: Normal. Collecting system: No hydronephrosis. No stones detected. Masses: None detected. Left kidney: 11.6 cm. Cortical thickness: Normal. Parenchymal echogenicity: Normal. Collecting system: No hydronephrosis. No stones detected. Masses: Stable 2.1 cm simple benign-appearing cyst in the mid to lower kidney. Bladder: Normal. Procedure Note Maddy Elena M.D. - 08/17/2023 EXAM: US KIDNEYS BILATERAL WITH BLADDER COMPARISON: CT urogram 07/02/2018. FINDINGS: Right kidney: 11.2 cm. Cortical thickness: Normal. Parenchymal echogenicity: Normal. Collecting system: No hydronephrosis. No stones detected. Masses: None detected. Left kidney: 11.6 cm. Cortical thickness: Normal. Parenchymal echogenicity: Normal. Collecting system: No hydronephrosis. No stones detected. Masses: Stable 2.1 cm simple benign-appearing cyst in the mid to lowerkidney. Bladder: Normal. IMPRESSION: Benign-appearing cyst in the left kidney. Otherwise the kidneys have anormal sonographic appearance. Cliff Sellers M.D. [facility] US PROCEDU RES * (ABNORMAL) Dipstick, Urine (08/17/2023 12:12 PM CDT) Hemoglobin, QL, U Moderate(A) Negative 08/17/2023 12:58 PM CDT DTL Leukocyte Esterase, U Negative Negative 08/17/2023 12:58 PM CDT DTL Nitrite, U Negative Negative 08/17/2023 12:58 PM CDT DTL Ketone, U Negative Negative mg/dL 08/17/2023 12:58 PM CDT DTL Glucose, U Negative Negative mg/dL 08/17/2023 12:58 PM CDT DTL Urine 08/17/2023 12:1 2 PM CDT 08/17/2023 12:39 PM CDT Cliff Sellers M.D. LAB URINE ORDE ARACELIS Performing Organization Address [facility] de Phone Number [facility] [address] [place], [place] [id number] [place] [address] 200 [place] [address] * Microscopic Automated (08/17/2023 12:12 PM CDT) Microscopy Normal 08/17/2023 12:58 PM CDT DTL RBC <3 <3 /hpf 08/17/2023 12:58 PM CDT DTL WBC None Seen /hpf 08/17/2023 12:58 PM CDT DTL Comment: ----REFERENCE VALUE---- <4 ??(Males) <11 (Females) Urine 08/17/2023 12:1 2 PM CDT 08/17/2023 12:39 PM CDT Cliff Sellers M.D. LAB URINE ORDBrett HSU Performing Organization Address [facility] Co de Phone Number [facility] [address] [place] [address], [facility]TG[facility] [address] [place] [address] * pH, Urine (08/17/2023 12:12 PM CDT) pH, U 7.1 4.5 - 8.0 08/17/2023 1:1 2 PM CDT DTL Urine 08/17/2023 12:1 2 PM CDT 08/17/2023 12:39 PM CDT Cliff Sellers M.D. LAB URINE ORDBrett LUNSFORDSANDY Performing Organization Address City/[facility] Co de Phone Number [facility] [address] [place] [address] * (ABNORMAL) Albumin, Random, Urine (08/17/2023 12:12 PM CDT) Albumin, Random, U 7.1 mg/L 2023 1:46 PM CDT DT Comment: ----ADDITIONAL INFORMATION---- This test has been modified from the senior systems engineer's instructions. Its performance characteristics were determined by [facility] in a manner consistent with CLIA requirements. This test has not been cleared or approved by the U.S. Food and Drug Administration. Creatinine 22 mg/dL 08/17/2023 1:21 PM CDT DTL Albumin/Creatinine Ratio 32(H) <25 mg/g 08/17/2023 1:46 PM CDT DTL Urine (Urine, Midstream) 08/17/2023 12:12 PM CDT 08/17/2023 12:49 PM CDT Cliff Sellers M.D. LAB URINE PASCUAL LUNSFORDSANDY Performing Organization Address [facility] Co de Phone Number [facility] [address] [place], [place] [address] [address] [place] [address] * Osmolality, Urine (08/17/2023 12:12 PM CDT) Osmolality, U 162 150 - 1150 mOsm/kg 08/17/2023 1:12 PM CDT DTL Urine 08/17/2023 12:1 2 PM CDT 08/17/2023 12:39 PM CDT Cliff Sellers M.D. LAB URINE PASCUAL LUNSFORDSANDY Performing Organization Address City/[facility]/ZIP Co de Phone Number [facility] [address] [place] [address], [facility] DTL [facility] [address] [place] [address] * Urinalysis, with Microscopic: Urine, Midstream (08/17/2023 12:12 PM CDT) Source Urine, Urine, Midstream 08/17/2023 12:39 PM CDT DTL Color, U Yellow 08/17/2023 12:39 PM CDT DTL Clarity, U Clear 08/17/2023 12:39 PM CDT DTL Protein, U 4 <26 mg/dL 08/17/2023 1:21 PM CDT DTL Protein/Osmol ality 0.25 <0.42 ratio 08/17/2023 1:21 PM CDT DTL Predicted 24 HR Protein, U 188 <229 mg/24 h 08/17/2023 1:21 PM CDT DTL Predicted Range 46-761 mg/24 h 08/17/2023 1:21 PM CDT DTL Urine (Urine, Midstream) 08/17/2023 12:12 PM CDT 08/17/2023 12:39 PM CDT Cliff Sellers M.D. LAB URINE PASCUAL HSU [facility] [address] [place] [address], [facility] DTG[facility] [address] [place] [address] * Renal Function Panel (08/17/2023 12:05 PM [...] Cliff Sellers M.D. [place] [address], [facility] [place]Just[place] [address] [place] [address] * (ABNORMAL) Lipid Panel (01/12/2023 9:13 AM CDT) Pathologist [facility] Triglycerides 150(H) mg/dL 01/12/2023 10:10 AM CDT DTL Comment: ----REFERENCE VALUE---- Normal: <150 mg/dL Borderline High: 150-199 mg/dL High: 200-499 mg/dL Very High: > or =500 mg/dL Cholesterol, Total 152 mg/dL 2022 10:10 AM CDT DTL Comment: ----REFERENCE VALUE---- Desirable: < 200 mg/dL Borderline High: 200 - 239 mg/dL High: > or = 240 mg/dL Cholesterol, LDL, Calculated 83 mg/dL 01/12/2023 10:10 AM CDT DTL Comment: ----REFERENCE VALUE---- Desirable: <100 mg/dL Above Desirable: 100-129 mg/dL Borderline High: 130-159 mg/dL High: 160-189 mg/dL Very High: >=190 mg/dL ----ADDITIONAL INFORMATION---- LDL cholesterol calculated using the Thurman/NIH equation. Cholesterol, HDL, S 43(L) >=50 mg/dL 01/12/2023 10:10 AM CDT DTL Cholesterol, Non-HDL, Calculated 109 mg/dL 01/12/2023 10:10 AM CDT DTL Comment: ----REFERENCE VALUE---- Desirable: <130 mg/dL Above Desirable: 130-159 mg/dL Borderline High: 160-189 mg/dL High: 190-219 mg/dL Very High: > or =220 mg/dL Fasting (8 HR or more) Yes 01/12/2023 9:53 AM CDT DTL Blood (Blood, Venous) 01/12/2023 9:13 AM CDT 01/12/2023 9:53 AM CDT Phil Randolph M.D. LAB BLOOD ADD-ON [facility] [address] [place] [address], [facility] DTC[facility] LaboratoriesHonorHealth [facility] [address] [place] [address] from Last 3 Months or Most Recently Relevant to Health Maintenance
--- OUTSIDE RECORDS SUMMARY | 2023-08-30 21:26 | XMS_ITS | Clinical Summary ---
Author Name Unknown Organization [facility] Address [address] [place] [address] Care Team Providers Care Agriculture Laborer Name Role Phone Unavailable Primary Care Provider Unavailabl e Source Comments Patient records contain information from all sites at [facility]. For routine questions regarding patient records, call [phone] during business hours, M-F 8:00 AM - 5:00 PM Central Time. Record requests for emergency care only can be directed to [phone] at any time.[facility] Allergies Active Allergy Reactions Criticality Noted Date [...] Carpal Tunnel Syndrome 11/12/2007 Lymphedema Swelling Leg Encounters Date Type Department Care Team Description 08/18/2023 3:30 PM CDT Office Visit Division of Nephrology and Hypertension in [address] [phone] Mariano Ken M.B.BSandraSSandra Hematuria; Benign Essential Microscopic Hematuria 08/18/2023 Documentation Division of Nephrology and Hypertension in [address] [address] Dequan Hutchison M.D. 08/17/2023 12:18 PM CDT - 08/17/2023 11:59 PM CDT Hospital Encounter Department of Radiology, [address] [address] Farshad Guzman M.B.BSandraSSandra, MCarlos Hematuria; Benign Essential Microscopic Hematuria Discharge Disposition: Home or Self Care 08/17/2023 11:51 AM CDT - 08/17/2023 12:17 PM CDT Hospital Encounter Department of Laboratory Medicine and Pathology, [address] [address] Farshad Guzman M.B.BSandraSSandra, MCarlos Hematuria; Benign Essential Microscopic Hematuria Discharge Disposition: Home or Self Care 08/17/2023 11:51 AM CDT - 08/17/2023 12:17 PM CDT Hospital Encounter Department of Laboratory Medicine and Pathology, [facility] in [address] [address] Farshad Guzman M.B.BSandraSSandra, MCarlos Hematuria; Benign Essential Microscopic Hematuria Discharge Disposition: Home or Self Care 08/14/2023 10:00 AM CDT Clinical Communication Virtual Review in [address] [address] Pre-visit Intake 06/25/2023 Clinical Communication Department of Nephrology in [address] [address] Guzman, FarshadMarlo M.D. Reschedule from Last 3 Months Family History Medical History Relation Name Comments Heart disease Brother 1 Alcohol abuse Brother 2 Ash Arthritis Brother 2 Ash Diabetes Brother 2 Ash Hyperlipidemia Brother 2 Ash currently rec eiving treatment Liver disease Brother 2 Ash Obesity Brother 2 Ash Sleep apnea Brother 2 Ash Anxiety disorder Brother 3 Jerome Arthritis Brother 3 Jerome Depression Brother 3 Jerome Diabetes Brother 3 Jerome Drug abuse Brother 3 Jerome Obesity Brother 3 Jerome Sleep apnea Brother 3 Jerome Thyroid disease Brother 3 Jerome Unexplained Brother 3 Jerome Arthritis Brother 4 Cruz Diabetes Brother 4 Cruz Hypertension Brother 4 Cruz Obesity Brother 4 Cruz Sleep apnea Brother 4 Cruz Unexplained Brother 4 Cruz Arthritis Brother 5 Parish Colon polyps Brother 5 Parish Coronary artery disease Brother 5 Parish valv e replacement and two stents Hyperlipidemia Brother 5 Parish currently rec eiving treatment Hypertension Brother 5 Parish currently recei ving treatment Obesity Brother 5 Parish Prostate cancer Brother 5 Parish Currently re ceiving treatment Sleep apnea Brother 5 Parish Diabetes Brother 6 Solomon Obesity Brother 6 Solomon Thyroid disease Brother 6 Solomon Asthma Daughter 1 Rosa M Migraines Daughter 1 Rosa M Obesity Daughter 1 Rosa M Anxiety disorder Daughter 2 Cassandra Diabetes Daughter 2 Cassandra currently recei ving treatment Hypertension Daughter 2 Cassandra currently recei ving treatment Migraines Daughter 2 Cassandra Obesity Daughter 2 Cassandra Anxiety disorder Daughter 3 Sandy Migraines Daughter 3 Sandy Anxiety disorder Father Pj Arthritis Father Pj Depression Father Pj Diabetes Father Jp Heart disease Father Pj Obesity Father Pj Prostate cancer Father Pj Sleep apnea Father Pj Stroke Father Pj Arthritis Mother Rosa M Coronary artery disease Mother Rosa M hear t attack Diabetes Mother Rosa M Heart disease Mother Rosa M Hyperlipidemia Mother Rosa M Hypertension Mother Rosa M Obesity Mother Rosa M Skin cancer Mother Rosa M Sleep apnea Mother Rosa M Stroke Mother Rosa M Heart disease Sister 1 Arthritis Sister 2 Hilda Lymphoma Sister 2 Hilda in remission Thyroid disease Sister 2 Hilda Breast cancer Sister 3 Lena Relation Name Status Comments Brother 1 Brother 2 Ash Brother 3 Jerome Brother 4 Cruz Brother 5 Parish Brother 6 Solomon Daughter 1 Rosa M Daughter 2 Cassandra Daughter 3 Sandy Father Pj Mother Rosa M Sister 1 Sister 2 Hilda Sister 3 Lena Social History Tobacco Use Types Packs/Day Years [...] than three times a week 12/31/2018 Attends Hinduism Services More than 4 times per year [...] Living Expenses Not hard at all 12/31/2018 [facility] of Occupat ional Health - Occupational Stress [...] Master's degree (e.g., MA, MS, Murphy, MEd, DIAMOND SIZER, BRIAN) 12/31/2018 Sex and Gender Information Value Date Recorded Sex Assigned at Female 06/22/2018 1:14 PM STEREOTYPE MOLDER Gender Identity Female 06/22/2018 1:14 PM STEREOTYPE MOLDER Sexual Orientation Straight 06/22/2018 1: 14 PM STEREOTYPE MOLDER Last Filed Vital Signs Vital Sign Reading [...] 08/18/2023 3:11 PM CDT Plan of Treatment Health Maintenance Due Date Last Done Comments CT Colonography 1959 Cologuard 1960 Mammogram 1960 Zoster Vaccines (1 of 2) 10/10/2009 COVID-19 Vaccine ( season) 2023 02/11/2022, 10/21/2021, 03/14/2021, Additional history exists Depression Screening (Annual PHQ-2) 05/18/2023 Thyroid Stimulating Hormone (TSH) test for thyroid function 03/05/2024 03/05/2023, 01/10/2022, 01/08/2021, Additional history exists DTaP,Tdap,and Td Vaccines (4 - Td or Tdap) 01/03/2025 01/03/2015, 11/12/2007, 11/12/2007 Fasting Glucose for Diabetes Screening 08/16/2026 08/17/2023, 01/12/2023, 10/21/2022, Additional history exists Colonoscopy 01/13/2028 01/12/2023, 12/17, 01/09/2020, Additional history exists Colorectal Cancer Surveillance 01/13/2028 Lipid (Cholesterol) Screening 01/13/2028 01/12/2023, 11/03/2022, 01/10/2022, Additional history exists Influenza Vaccine Completed 01/30/2023, , 03/14/2021, Additional history exists Pneumococcal vaccine (0-64 years) Aged Out No longer eligible based on patient's age to complete this topic Goals Goal Patient Goal Type Associated Problems Recent Progress Patient-Stated? Author 3rd Opinion General Yes Rhonda Villalta M.S.N., R.N. Note: Patient has seen Dr. Alex in [place] and Dr. Chen in [place] for Rheumatology care. She has been told many diagnosis' (including CTD, Sarcoidosis, Lupus and Panniculitis). She is wanting our opinion and some help with Diagnosis and future treatment recommendations. Medical Devices Implanted Type [employer] Guidance Counselor Device Identifier Shelf Expiration Date Model / Serial / Lot Cardiac Valve Prosthesis-04/04 Implanted:2004 by Odilon North M.D. (Quantity not on file) Cardiac Valve Prosthesis Heart [id number] / [id number] / Description:Aortic Valve Per MagResource: Nonclinical testing has demonstrated the Medtronic Open Pivot Heart Valve (Models 500, 501, 503, and 505) is MR Conditional. It can be scanned safely under the following conditions: -Static magnetic field of 3 Amanda or less -Spatial gradient field of 720 Gauss/cm -Maximum whole body average specific absorption rate (NICOLA) of 2.9 W/kg for 15 minutes ([facility] 10/30/2022) Hardware E.G. Pins/Screws/Rods -11/15/2006 Implanted:2006 [...] have anormal sonographic appearance. Cliff Sellers M.D. IMG US PROCEDU RES * (ABNORMAL) Dipstick, Urine [...] Cliff Sellers M.D. LAB URINE PASCUAL [facility] [address] [place] [address], [facility] [address] [place] [address] * Microscopic Automated (08/17/2023 12:12 PM CDT) Microscopy Normal 08/17/2023 12:58 PM CDT DTL RBC <3 <3 /hpf 08/17/2023 12:58 PM CDT DTL WBC None Seen /hpf 08/17/2023 12:58 PM CDT DTL Comment: ----REFERENCE VALUE---- <4 ??(Males) <11 (Females) Urine 08/17/2023 12:1 2 PM CDT 08/17/2023 12:39 PM CDT Cliff Sellers M.D. LAB URINE PASCUAL ARACELIS Performing Organization Address City/[facility] [place] [address] * pH, Urine (08/17/2023 12:12 PM CDT) pH, U 7.1 4.5 - 8.0 08/17/2023 1:1 2 PM CDT DTL Urine 08/17/2023 12:1 2 PM CDT 08/17/2023 12:39 PM CDT Cliff Sellers M.D. LAB URINE PASCUAL ARACELIS Performing Organization Address [facility] [place] [address] * (ABNORMAL) Albumin, Random, Urine (08/17/2023 12:12 PM CDT) Albumin, Random, U 7.1 mg/L 2023 1:46 PM CDT DT Comment: ----ADDITIONAL INFORMATION---- This test has been modified from the cloth washer back tender's instructions. Its performance characteristics were determined by [facility] in a manner consistent with CLIA requirements. This test has not been cleared or approved by the U.S. Food and Drug Administration. Creatinine 22 mg/dL 08/17/2023 1:21 PM CDT DTL Albumin/Creatinine Ratio 32(H) <25 mg/g 08/17/2023 1:46 PM CDT DTL Urine (Urine, Midstream) 08/17/2023 12:12 PM CDT 08/17/2023 12:49 PM CDT Cliff Sellers M.D. LAB URINE PASCUAL LUNSFORDSANDY Performing Organization Address [facility] Co de Phone Number [facility] [address] [place], [place] [id number] [place] [address] 200 [place] [address] * Osmolality, Urine (08/17/2023 12:12 PM CDT) Osmolality, U 162 150 - 1150 mOsm/kg 08/17/2023 1:12 PM CDT DTL Urine 08/17/2023 12:1 2 PM CDT 08/17/2023 12:39 PM CDT Cliff Sellers M.D. LAB URINE PASCUAL ARACELIS Performing Organization Address [facility] de Phone Number [facility] [address] [place] [address], [place] [address] * Urinalysis, with Microscopic: Urine, Midstream (08/17/2023 [...] Cliff Sellers M.D. LAB URINE PASCUAL [facility] [address] [place] [address], [facility] DTL [facility] [address] [place] [address] * Renal Function Panel (08/17/2023 12:05 PM CDT) Pathologist [facility] Potassium, S 4.4 3.6 - 5.2 mmol/L [...] Cliff Sellers M.D. LAB BLOOD ADD- ON [facility] [address] [place] [address], [facility] [address] [place] [address] * (ABNORMAL) Lipid Panel (01/12/2023 9:13 AM CDT) Triglycerides 150(H) mg/dL 01/12/2023 10:10 AM CDT [...] CDT Phil Randolph M.D. LAB BLOOD ADD-ON [facility] [address] [place] [address], [facility] DTL [facility] [address] [place] [address] from Last 3 Months or Most Recently Relevant to Health Maintenance
--- OUTSIDE RECORDS SUMMARY | 2023-08-30 21:26 | XMS_ITS | Encounter Summary ---
Author Name Unknown Organization [facility] Address [address] [place] [address] Care Team Providers Care Asphalt Heater Operator Name Role Phone Unavailable Primary Care Provider Unavailabl e Encounter Details Date Type Department Care Team (Late st Contact Info) Description 08/18/2023 Documentation Division of Nephrology and Hypertension in [place], [place] [address] [place] [address] Dequan Hutchison M.D. [address] [place] [address] Social History Tobacco Use Types Packs/Day Years [...] than three times a week 12/31/2018 Attends Mu-Ism Services More than 4 times per year [...] Living Expenses Not hard at all 12/31/2018 [facility] of Occupat ional Health - Occupational Stress [...] Master's degree (e.g., MA, MS, Murphy, MEd, RELATIONSHIP EXECUTIVE, BRIAN) 12/31/2018 Sex and Gender Information Value Date Recorded Sex Assigned at Female 06/22/2018 1:14 PM BLOW MOLD MACHINE OPERATOR Gender Identity Female 06/22/2018 1:14 PM BLOW MOLD MACHINE OPERATOR Sexual Orientation Straight 06/22/2018 1: 14 PM BLOW MOLD MACHINE OPERATOR documented as of this encounter Progress Notes * Dequan Hutchison M.D. - 08/18/2023 4:16 PM CDT I reviewed this case with Dr.Yasir Ken. I did not meet Mrs. Peter . I agree with the impression and plan recorded by Dr. Ken. 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 She has never had a kidney biopsy. Serum creatinine is stable and normal. Albuminuria has risen slightly but is still minimal. She has no family history of chronic kidney disease/hematuria nor hearing loss. 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 I am curious what a biopsy would show, but I can not justify it based on her long-term stability with minimal treatment. Her C-reactive protein is increasing; we will watch that carefully and reconsider kidney biopsy if there is evidence of deterioration of renal function. Dequan Hutchison MD documented in this encounter Plan of Treatment Not on file documented as of this encounter Goals Goal Patient Goal Type Associated Problems Recent Progress Patient-Stated? Author 3rd Opinion General Yes Rhonda Villalta, M.S.N., R.N. Note: Patient has seen Dr. Alex in [place] and Dr. Chen in [place] for Rheumatology care. She has been told many diagnosis' (including CTD, Sarcoidosis, Lupus and Panniculitis). She is wanting our opinion and some help with Diagnosis and future treatment recommendations. documented as of this encounter Visit Diagnoses Not on filedocumented in this encounter
--- OUTSIDE RECORDS SUMMARY | 2023-08-30 21:26 | XMS_ITS ---
Author Name Unknown Organization [facility] Address [address] [place] [address] Care Team Providers Care Jewel Stripper Name Role Phone Unavailable Unavailable Unavailable Surgery Details Not on file Complications Check Surgery Details section. Procedure Estimated Blood Loss Check Surgery Details section. Procedure Findings Check Surgery Details section. Procedure Specimens Taken Check Surgery Details section.
--- OUTSIDE RECORDS SUMMARY | 2023-08-30 21:27 | XMS_ITS | Encounter Summary ---
Author Name Unknown Organization [facility] Address [address] [place] [address] Care Team Providers Care Thermal Surfacing Machine Operator Name Role Phone Unavailable Primary Care Provider Unavailabl e Reason for Visit * Reason Onset Date Comments Pre-visit Intake 08/14/2023 Encounter Details Date Type Department Care Team (Latest Contact Info) Description 08/14/2023 10:00 AM CDT Clinical Communication Virtual Review in [place], [place] 200 [place], [place] [phone] Pre-visit Intake Social History Tobacco Use Types Packs/Day Years [...] than three times a week 12/31/2018 Attends Worship Services More than 4 times per year [...] Living Expenses Not hard at all 12/31/2018 [facility] of Occupat ional Health - Occupational Stress [...] Master's degree (e.g., MA, MS, Murphy, MEd, AUTOMOTIVE SERVICE PROFESSIONAL, BRIAN) 12/31/2018 Sex and Gender Information Value Date Recorded Sex Assigned at Female 06/22/2018 1:14 PM BENEFITS COORDINATOR Gender Identity Female 06/22/2018 1:14 PM BENEFITS COORDINATOR Sexual Orientation Straight 06/22/2018 1: 14 PM BENEFITS COORDINATOR documented as of this encounter Plan of Treatment Not on file documented as of this encounter Goals Goal Patient Goal Type Associated Problems Recent Progress Patient-Stated? Author 3rd Opinion General Yes Rhonda Villalta, M.S.N., R.N. Note: Patient has seen Dr. Alex in [place] and Dr. Chen in [place] for Rheumatology care. She has been told many diagnosis' (including CTD, Sarcoidosis, Lupus and Panniculitis). She is wanting our opinion and some help with Diagnosis and future treatment recommendations. documented as of this encounter Visit Diagnoses Not on filedocumented in this encounter
--- OUTSIDE RECORDS SUMMARY | 2023-08-30 21:27 | XMS_ITS | Encounter Summary ---
Author Name Unknown Organization [facility] Address [address] [place] [address] Care Team Providers Care Paper Guillotine Operator Name Role Phone Unavailable Primary Care Provider Unavailabl e Reason for Visit * Reason Onset Date Comments Reschedule 06/25/2023 Encounter Details Date Type Department Care Team ([facility] st Contact Info) Description 06/25/2023 Clinical Communication Department of Nephrology in [address] [phone] Farshad Guzman M.B.B.S., MBrandi. [address] [place] [phone] Reschedule Social History Tobacco Use Types Packs/Day Years [...] than three times a week 12/31/2018 Attends Sabianism Services More than 4 times per year [...] Living Expenses Not hard at all 12/31/2018 [facility] of Occupat ional Health - Occupational Stress [...] Master's degree (e.g., MA, MS, Murphy, MEd, POSTPARTUM NURSE, BRIAN) 12/31/2018 Sex and Gender Information Value Date Recorded Sex Assigned at Female 06/22/2018 1:14 PM METAL RIVETER Gender Identity Female 06/22/2018 1:14 PM METAL RIVETER Sexual Orientation Straight 06/22/2018 1: 14 PM METAL RIVETER documented as of this encounter Plan of Treatment Not on file documented as of this encounter Goals Goal Patient Goal Type Associated Problems Recent Progress Patient-Stated? Author 3rd Opinion General Yes Rhonda Villalta M.S.N., R.N. Note: Patient has seen Dr. Alex in [place] and Dr. Chen in [place] for Rheumatology care. She has been told many diagnosis' (including CTD, Sarcoidosis, Lupus and Panniculitis). She is wanting our opinion and some help with Diagnosis and future treatment recommendations. documented as of this encounter Visit Diagnoses Not on filedocumented in this encounter
--- OUTSIDE RECORDS SUMMARY | 2023-08-30 21:27 | XMS_ITS | Encounter Summary ---
Author Name Unknown Organization [facility] Address [address] [place] [address] Care Team Providers Care Offset Second Press Operator Name Role Phone Unavailable Primary Care Provider Unavailabl e Reason for Referral * Outpatient (Routine) - Closed Specialty Diagnoses / Procedures Referred By Brigido byrne Referred To Contact Diagnoses Hematuria Benign Essential Microscopic Hematuria Procedures US Kidneys Bilateral with Bladder Farshad Guzman M.B.B.S., M.D. [address] [place] [phone] [facility] Referral ID Status Reason Start Date Expiration Date Visits Re quested Visits Authorized [id number] Closed 11/09/2022 11/09/2023 1 1 Reason for Visit * Outpatient (Routine) - Closed Specialty Diagnoses / Procedures Referred By Brigido byrne Referred To Contact Diagnoses Hematuria Benign Essential Microscopic Hematuria Procedures US Kidneys Bilateral with Bladder Farshad Guzman M.B.B.S., M.D. [address] [place] [phone] [facility] Referral ID Status Reason Start Date Expiration Date Visits Re quested Visits Authorized [id number] Closed 11/09/2022 11/09/2023 1 1 Encounter Details Date Type Department Care Team (Latest Contact Info) Description 08/17/2023 12:18 PM CDT - 08/17/2023 11:59 PM CDT Hospital Encounter Department of Radiology, [facility], in [place], [place] [address] [place] [address] Farshad Guzman M.B.B.S., M.D. [address] [place] [phone] Hematuria; Benign Essential Microscopic Hematuria Discharge Disposition: [...] than three times a week 12/31/2018 Attends [employer] Services More than 4 times per year [...] Living Expenses Not hard at all 12/31/2018 [facility] [place] of Occupat ional Health - Occupational Stress [...] Master's degree (e.g., MA, MS, Murphy, MEd, BANQUET KITCHEN SUPERVISOR, BRIAN) 12/31/2018 Sex and Gender Information Value Date Recorded Sex Assigned at Female 06/22/2018 1:14 PM BATTERY CONTAINER TESTER ALUMINUM Gender Identity Female 06/22/2018 1:14 PM BATTERY CONTAINER TESTER ALUMINUM Sexual Orientation Straight 06/22/2018 1: 14 PM BATTERY CONTAINER TESTER ALUMINUM documented as of this encounter Medications at [...] Note: Patient has seen Dr. Alex in [place] and Dr. Chen in [place] for Rheumatology care. She has been told [...] Hematuria documented in this encounter Results * US Kidneys Bilateral with Bladder [...] have anormal sonographic appearance. Cliff Sellers M.D. [facility] [place] PROCEDU RES documented in this encounter Visit Diagnoses Diagnosis Hematuria Benign Essential Microscopic Hematuria documented in this encounter
--- OUTSIDE RECORDS SUMMARY | 2023-08-30 21:27 | XMS_ITS | Clinical Summary ---
Author Name Unknown Organization [facility] Address [place], [place] [address] Care Team Providers Care Intrusion Analyst Name Role Phone Dorota Loera MD Primary Care Provide r Henry Alex MD Unavailable [phone] Allergies Active Allergy Reactions Criticality Noted Date Comments Adhesive Tape Contact Dermatitis Low 09/14/2006 Gluten Edema High 01/06/2019 Hydroxychloroquine Rash Medium 08/03/2017 Plaquenil Lactose Edema High 01/06/2019 Latex, Natural Rubber Itching Low 08/28/2022 Morphine Itching High 09/14/2006 Prednisone Hyperglycemia 08/28/2022 Cause blood sugars to rise. [place] suggested not to use. Medications Medication Sig Dispensed Refills Start Date End Date Status clindamycin (CLEOCIN) 150 mg capsule 150 mg. Take prior to dental work 09/26/2014 Active Cholecalciferol, Vitamin D3, (VITAMIN D-3) 5,000 unit tab Take 1 tablet by mouth once daily. 0 01/26/2018 Active acetaminophen (TYLENOL EXTRA STRGTH) 500 mg tabletIndications:Ar thralgia, unspecified joint Take 2 tablets by mouth every 6 hours if needed. Max acetaminophen dose: 4000mg in 24 hrs. 0 01/06/2019 Active Magnesium Oxide 500 mg capIndications:Arthr algia, unspecified joint Take 2 tablets at supper 100 Cap 01/06/2019 Active medication order composerIndications: Takes dietary supplements Take by mouth 1 multivitamin tab per day. 0 01/17/2020 Active CPAPIndications:ULYSSES on CPAP CPAP machine for home use at pressure 11 cmw, full face mask x1/3month with a full face cushion x1/mo 1 Each 11 05/30/2022 Active durable medical equipment (DME)Indications:Alix rosa m osteoarthritis of both first carpometacarpal joints right and left comfortcool, large 2 Each 12/10/2022 Active DULoxetine (CYMBALTA) 20 mg Delayed-release capsuleIndications:C onnective tissue disease (HC),Adjustment disorder with depressed mood Take 1 Capsule (20 mg) by mouth once daily. 90 Capsule 3 03/05/2023 Active levothyroxine (SYNTHROID) 137 mcg tabletIndications:Hy pothyroidism, unspecified type Take 1 Tablet (137 mcg) by mouth once daily. 90 Tablet 3 03/05/2023 Active dilTIAZem CD (CARDIZEM CD) 120 mg extended release 24 hr capsuleIndications:P aroxysmal atrial fibrillation (HC) Take 1 Capsule (120 mg) by mouth once daily. 90 Capsule 3 03/05/2023 Active rosuvastatin (CRESTOR) 5 mg tabletIndications:Hy perlipidemia, unspecified hyperlipidemia type Take 1 Tablet (5 mg) by mouth once daily with evening meal. 90 Tablet 3 03/05/2023 Active Graduated Compression StockingsIndications :Connective tissue disease (HC),Bilateral leg edema For personal use. Length: calf Strength: 20-30 mmHg Circumference in cm: 6 Packet 2 03/31/2023 Active predniSONE (DELTASONE) 20 mg tabletIndications:Bu nion, right foot 2 tablets once daily for 3 days then 1 tablet once daily for 3 days then 1/2 tablet once daily for 4 days. 11 Tablet 04/21/2023 Active warfarin (COUMADIN) 10 mg tabletIndications:Pa roxysmal atrial fibrillation (HC),Anticoagulation monitoring, INR range 2-3,Aortic valve replaced TAKE BY MOUTH 5 mg (10 mg x 0.5) every Mon; 10 mg (10 mg x 1) all other days IN THE EVENING OR DIRECTED 86 Tablet 1 07/06/2023 Active Active Problems Problem Noted Date Diagnosed Date Mixed connective tissue disease 09/09/2018 Connective tissue disease 07/03/2017 Kidney stone 04/10/2014 Benign microscopic hematuria 01/20/2014 Anticoagulation monitoring, INR range 2-3 2013 ACP (advance care planning) 04/07/2012 Overview: Patient has identified Health Care Agent(s): No Add Health Care Agents: No,Sw provided HCD and explained this.[employer] [phone] would be decision maker Patient has Advance Care Plan Documents (Health Care Directive, POLST): No, Health Care Packet given to patient. Patient has identified Specific Treatment Preferences: No Specific limits to treatment preferences NOT identified: ASSUME FULL TREATMENT. 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 Carpal tunnel syndrome 11/12/2007 AORTIC VALVE STENOSIS: S/p AVR Unspecified sleep apnea Other and unspecified hyperlipidemia HYPOTHYRODISIM Resolved Problems Problem Noted Date Diagnosed Date Resolved Date Colon polyp, hyperplastic 10/18/2009 Overview: Colonoscopy 10/2009 polyps repeat in 10 years Adjustment disorder with mix ed anxiety and depressed mood 04/12/2008 09/16/2011 Anxiety state, unspecified 02/23/2007 0 10/24/2008 Adjustment disorder with depressed mood 10/14/2006 10/24/2008 Chest pain, unspecified 09/14/200605/18 Heart valve replaced by other means 09/14/2006 10/24/2008 Atrial fibrillation 09/14/2006 06/01/19 08 Chronic ischemic heart disease, unspecified 09/14/2006 06/01/2007 Posttraumatic stress disorder 09/14/2006 09/16/2011 Encounters Date Type Department Care Team Description 08/05/2023 3:15 PM CDT Orders Only [facility] [address] [place] [address] [place] [facility] 08/05/2023 Anticoagulation (warfarin) [facility] [address] [place] [address] 1[place] [facility] Anticoagulation 08/05/2023 Travel 07/05/2023 Refill [facility] [address] [place] [address] Dorota Loera MD Refill Request (Warfarin) 06/25/2023 3:15 PM WATERSHED MANAGER Orders Only [facility] [address] [facility] [address] [facility] [facility] 06/25/2023 Anticoagulation (warfarin) [facility] [address] [facility] [address] [facility] [facility] Anticoagulation 06/25/2023 Travel 06/17/2023 Orders Only [facility] [address] [place] [address] Aaron Singh, DPM <No scans attached> from Last 3 Months Immunizations Name Administration Dates Next Due AMB Influenza, IIV3 (Age >=3 years)(Flu Clinic Only) 03/07/2011 COVID-19 vaccine (Smarp-[employer] NTech 30mcg/0.3mL) 12YO+ BIVALENT PF, MDV 02/11/2022 COVID-19 vaccine (Smarp-Bio NTech 30mcg/0.3mL) 12YO+ JASON-SUCROSE PF, MDV 10/21/2021 DTaP 11/12/2007 Hepatitis B (Adult) 09/30/1999,04/10/1999,1998 Influenza A (H1N1), Inactivated 05/03/2009 Influenza A (H1N1), Inactiva taryn (Age >=3 Years) 05/03/2009 Influenza, IIV3 (Age 6-35 mos) 03/07/2011,2009 Influenza, IIV3 (Age >=3 years) 01/23/20 10,02/01/2009,03/09/2007,2005,03/06/2005,03/25/2003 Influenza, IIV4 01/30/2023, 2,01/24/2020,2018,03/11/2018,02/28/2016,01/23/2015,1 Influenza, IIV4 (=>6mos) MDV 03/14/2021,01/30/20 17 Td (Age >=7 Years) 02/18/1999 Tdap 01/03/2015,11/12/2007 Tuberculin (PPD) 04/16/2012 Family History Medical History Relation Name Comments Diabetes Brother BROTHER ALSO SMALLWOOD D DEPRESSION Diabetes Father Diabetes Mother Hypertension Mother Stroke Mother Cancer-breast Sister 1 age 26 & at 32 Cancer Sister 2 Lymphoma-- inte rmediate Relation Name Status Comments Brother Father Mother Sister 1 Sister 2 Social History Tobacco Use Types Packs/Day Years Used Date Smoking Tobacco: Never Smokeless Tobacco: Never Tobacco Cessation:Counseling Given: Yes Alcohol Use Standard Drinks/Week Comments Not Currently 0 (1 standard drink = 0.6 oz pur e alcohol) 2-3 times per year PHQ-2 Answer Date Recorded PHQ-2 TOTAL SCORE 2 02/10/2023 Social Connections Answer Date Recorded Frequency of Communication with Friends and Fami ly Not on file 05/17/2021 Financial Resource Strain Answer Date R ecorded Difficulty of Paying Living Expenses Not on file 05/17/2021 Difficulty of Paying Living Expenses Not on file 05/17/2021 Sex and Gender Information Value Date Recorded Sex Assigned at Not on file Gender Identity Not on file Sexual Orientation Not on file Obstetrics History Last Filed Vital Signs Vital Sign Reading Time Taken Comments Blood Pressure 163/80 04/21/2023 4:13 PM WATERSHED MANAGER tow er Pulse 61 04/21/2023 4:13 PM WATERSHED MANAGER Temperature 37.3 ??C (99.1 ??F) 01/30/2023 8:26 AM CD T Respiratory Rate 18 12/23/2022 9:08 AM CDT Oxygen Saturation 97% 04/21/2023 4:13 PM WATERSHED MANAGER Inhaled Oxygen Concentration - - Weight 142.5 kg (314 lb 1.6 oz) 03/05/2023 1:40 PM CDT Height 175.3 cm (5' 9) 03/05/2023 1:40 PM CDT Body Mass Index 46.38 03/05/2023 1:40 PM CDT Plan of Treatment Upcoming Encounters Date Type Department Care Team (Late st Contact Info) Description 09/16/2023 3:15 PM CDT Orders Only [facility] [address] [place] [address] [place] 10/13/2023 3:30 PM CDT [facility]op Visit [facility] [address] [facility] [address] Dorota Loera MD [address] [place] [address] 10/19/2023 8:30 AM CDT Office Visit [facility] [address] [place] [address] Aaron Singh DPM [address] [place] [address] 10/21/2023 1:00 PM CDT Office Visit [facility] [address] [place] [address] Aaron Singh DPM [address] [place] [address] 11/04/2023 11:00 AM CDT Office Visit [facility] [address] [place] [address] Aaron Singh DPM [address] [place] [address] Health Maintenance Due Date Last Done Comments HIV for age 15-65 10/10/1974 Zoster (shingles) series for age 50+ (1 of 2) 10/10/2009 COVID-19 vaccine series ( season) 2023 02/11/2022, 10/21/2021, 03/14/2021, Additional history exists Mammogram for age 45-75 11/29/2023 11/29/19, 11/15/2021, 09/26/2020, Additional history exists Influenza for age 50-64 01/17/2024 01/31/20 23, 02/11/2022, 03/14/2021, Additional history exists Depression screening for age 12+ 02/11/2024 02/10/2023, 02/03/2023, 02/02/2023, Additional history exists BMI (ht and wt on same day) for age 18+ 03/05/2024 03/05/2023, 10/23/2022, 05/30/2022, Additional history exists Tetanus booster 01/03/2025 01/03/2015, 10/17 (Completed outside of [facility]), 11/12/2007, Additional history exists Lipids for age 45-75 01/10/2027 01/10/2022, 01/08/2021, 09/02/2019, Additional history exists Colonoscopy through age 75 01/08/203001/08 (Verified in Care Everywhere or Patient Record), 10/18/2009, 10/16/2009 Tdap Completed 01/03/2015, 11/12/2007 Hepatitis C screening for age 18-79 Completed 07/11/2019 Pneumococcal series for age 6-64 Aged Out No longer eligible based on patient's age to complete this topic Medical Devices Implanted Type Area Admin Dir Device Identifier Shelf Expiration Date Model / Serial / Lot Valve Aortic 22mm [id number] - [id number] Implanted:Qty: 1 on 04/04/2005 at [facility] [employer] N/A: Aorta [facility] [id number] / [id number] / [id number] - [id number] Implanted:Qty: 1 on 04/04/2005 at [facility] Surgery Oncology [id number] / / Procedures Procedure Name Priority Date/Time Associated Diagnosis Comments INR,POCT Routine 08/05/2023 3:03 PM CDT Paroxysmal atrial fibrillation (HC) Anticoagulation monitoring, INR range 2-3 Aortic valve replaced INR,POCT Routine 06/25/2023 3:12 PM WATERSHED MANAGER Paroxysmal atrial fibrillation (HC) Anticoagulation monitoring, INR range 2-3 Aortic valve replaced XR MAMMO BILAT SCREENING Routine 11/28/2022 2:11 PM CDT Visit for screening mammogram LIPID PANEL W REFLEX MEASURED LDL Routine 01/10/2022 8:15 AM CDT Lipid screening ANTI HCV Routine 07/11/2019 4:20 PM WATERSHED MANAGER Need for hepatitis C screening test from Last 3 Months or Most Recently Relevant to Health Maintenance Results * (ABNORMAL) INR,POCT (08/05/2023 3:03 PM CDT) Only the most recent of2 resultswithin the time period is included. INR 2.0(H) <1.3 08/05/2023 3:06 PM CDT [facility] Blood BLOOD SPECIMEN / Unknown 08/05/2023 3:03 PM CDT 08/05/2023 3:06 PM CDT Narrative [facility] - 08/05/2023 3:06 PM CDT ?Therapeutic Range 2.0-3.0 for most anticoagulated patients 2.5-3.5 or 4.0 for high risk patients Dorota Loera MD LABORATORY [facility] [address] [place] [address], * XR MAMMO BILAT SCREENING (11/28/2022 2:11 PM CDT) Anatomical Region Laterality Modality BREASTS, Breast Left, Breast Right Bilateral Mammography Impressions 12/01/2022 2:55 PM CDT ??There is no radiographic evidence for malignancy. ??Recommend annual mammograms. MAMMOGRAM ASSESSMENT: ??ACR 1 Negative PATIENTS: You will also receive a letter with your examination results in an easy to read format. ??If you have questions about your results, please contact your referring provider. Narrative 12/01/2022 2:55 PM CDT For Patients: As a result of the Century Cures Act, medical imaging exams and procedure reports are released immediately into your electronic medical record. You may view this report before your referring provider. If you have questions, please contact your health care provider. XR MAMMO BILAT SCREENING [[id number]] CLINICAL HISTORY: ??This is an asymptomatic 62 y.o. patient. INDICATION FOR EXAM: Mammogram Screening. TECHNIQUE: CC & MLO views were obtained. ??This study was evaluated with the assistance of Computer-Aided Detection. COMPARISON FILM: Yes 11/15/21 [facility] 09/26/20 [facility] FINDINGS: ??The breasts have scattered areas of fibroglandular density. There are no dominant masses, suspicious micro calcifications or areas of architectural distortion. Dorota Loera MD MAMMO * (ABNORMAL) LIPID PANEL W REFLEX MEASURED LDL (01/10/2022 8:15 AM CDT) CHOLESTEROL,TOTAL 210(H) 100 - 199 mg/dL 01/10/2022 6:57 PM CDT [facility] LAB[facility] TRIGLYCERIDES 137 <150 mg/dL 01/10/2022 6:57 PM CDT [facility] HDL CHOLESTEROL 43 >40 mg/dL 6:57 PM CDT [facility] NON-HDL CHOLESTEROL 167(H) <145 mg/dl 01/10/2022 6:57 PM CDT [facility] CHOL/HDL RATIO 4.88(H) <4.50 01/10/2022 6:57 PM CDT [facility] LDL CHOLESTEROL 140(H) <=130 mg/dL 01/10/2022 6:57 PM CDT [facility] VLDL CHOLESTEROL 27 <=30 mg/dL 01/10/2022 6:57 PM CDT [facility] PROVIDER ORDERED STATUS RANDOM 01/10/2022 6:57 PM CDT [facility] Blood BLOOD SPECIMEN / Unknown Venipuncture / Unknown 01/10/2022 8:15 AM CDT 01/10/2022 8:15 AM CDT Dorota Loera MD CHEMISTRY [facility] [address] [place] [address], [place] * ANTI HCV (07/11/2019 4:20 PM WATERSHED MANAGER) HEPATITIS C ANTIBODY Non-React amisha Non-React amisha 07/12/2019 5:27 PM WATERSHED MANAGER [facility] Comment:Antibodies to HCV no t detected; does not exclude the possibility of exposure to HCV. Blood BLOOD SPECIMEN / Unknown Venipuncture / Unknown 07/11/2019 4:20 PM WATERSHED MANAGER 07/11/2019 4:23 PM WATERSHED MANAGER Dorota Loera MD SEND OUTS [facility]AT[facility] LABORATORY [address] [place] [address], from Last 3 Months or Most Recently Relevant to Health Maintenance Additional Health Concerns Infection Onset Date Last Indicated MDRO-GNB 01/30/2023 01/30/2023 Advance Directives * Full Code (Latest Code Status on File) Date Activated Date Inactivated Comments 12/23/2022 7:43 AM 12/23/2022 11:27 AM Question Answer Comments Code Status Discussion: Reviewed Preferences * Full Code Date Activated Date Inactivated Comments 04/06/2012 9:13 PM 04/12/2012 4:30 PM * Full Code Date Activated Date Inactivated Comments 04/04/2005 12:34 PM 04/10/2005 2:09 PM * Full Code Date Activated Date Inactivated Comments 04/04/2005 12:16 PM 04/04/2005 1:19 PM * Full Code Date Activated Date Inactivated Comments 04/04/2005 4:47 AM 04/04/2005 12:16 PM Care Teams Intrusion Analyst Relationship Specialty Start Date End Date Dorota Loera MD [address] [place] [address] PCP - General 06/17/04 Henry Alex MD [address] [place] [address] Rheumatology Rheumatology 05/19/12
--- OUTSIDE RECORDS SUMMARY | 2023-08-30 21:27 | XMS_ITS | Encounter Summary ---
Author Name Unknown Organization [facility] Address [address] [place] [address] Care Team Providers Care Licensed Final Expense Agents Name Role Phone Unavailable Primary Care Provider Unavailabl e Encounter Details Date Type Department Care Team (Late st Contact Info) Description 10/06/2022 Orders Only Division of Rheumatology in [place], [place] [address] [place] [address] [facility], Provider Social History Tobacco Use Types Packs/Day Years [...] than three times a week 12/31/2018 Attends [employer] More than 4 times per year [...] Living Expenses Not hard at all 12/31/2018 [facility] - Occupational Stress [...] Master's degree (e.g., MA, MS, Murphy, MEd, WELD FITTER, BRIAN) 12/31/2018 Sex and Gender Information Value Date Recorded Sex Assigned at Female 06/22/2018 1:14 PM RUBBER WORKER Gender Identity Female 06/22/2018 1:14 PM RUBBER WORKER Sexual Orientation Straight 06/22/2018 1: 14 PM RUBBER WORKER documented as of this encounter Plan of Treatment Not on file documented as of this encounter Goals Goal Patient Goal Type Associated Problems Recent Progress Patient-Stated? Author 3rd Opinion General Yes Rhonda Villalta, M.S.N., R.N. Note: Patient has seen Dr. Alex in [place] and Dr. Chen in [place] for Rheumatology care. She has been told many diagnosis' (including CTD, Sarcoidosis, Lupus and Panniculitis). She is wanting our opinion and some help with Diagnosis and future treatment recommendations. documented as of this encounter Visit Diagnoses Not on filedocumented in this encounter
--- OUTSIDE RECORDS SUMMARY | 2023-08-30 21:27 | XMS_ITS | Continuity of Care Document ---
Author Name Unknown Organization [facility] Address [address] [place] [address] Phone Care Team Providers Care Silverware Etcher Name Role Phone Anum Chen MD Unavailable Unavailable Allergies, Adverse Reactions, Alerts Substance Reaction Status Criticality HYDROXYCHLOROQUINE SULFATE Active N o Information morphine Active No Information Medications Medication Instructions Dosage Effective Dates (start - stop) Status Comments Tylenol Extra Strength 500 mg tablet take 2 tablet by oral route every 6 hours as needed 1000 MG - Active prednisone 5 mg tablet take 1 tablet by oral route every day 5 MG - Active azathioprine 50 mg tablet take 3 tablet by oral route every day 150 MG - Active duloxetine 20 mg capsule,delayed release take 1 capsule by oral route every day 20 MG - Active Vitamin D3 5,000 unit tablet take 1 by Oral route once 1 - Active clindamycin HCl 150 mg capsule take 1 capsule by oral route every 6 hours 150 MG - Active Miscellaneous ORAL TABLET Bifido Balance 600 mg, 2 capsules daily - Active warfarin 10 mg tablet 1.5 tablets Sun & Wed, 1 tablet Mon, , , Fri & Sat - Active Cartia XT 120 mg capsule,extended release take 1 capsule by oral route every day 120 MG - Active levothyroxine 137 mcg tablet take 1 tablet by oral route every day 137 MCG - Active Procedures Procedure Date Office Consultation Routine Venipuncture Specimen Handling Rbc Sed Rate, Nonautomated Assay Of Serum Albumin Assay Of Ck (Cpk) Assay Of Creatinine Assay Alkaline Phosphatase Transferase (Ast) (Sgot) Assay Of Blood/Uric Acid CReactive Protein Urinalysis Nonauto W/O Scope Antinuclear Antibodies CCP Antibody Rheumatoid Factor, IGM Rheumatoid Factor, IGG, IGA Complete Cbc WAuto Diff Wbc Results Test Name Date and Time Measure Units Reference Range Abnormal Flag Status Comments Panel Description: UA Dipstick Final Color 2017 14:36:0 0 Yellow Final Clarity 2017 14:36:0 0 Clear Final Glucose 2017 14:36:0 0 Negative Final Bilirubin 2017 14:36:0 0 Negative Final Ketone 2017 14:36:0 0 Negative Final Spec Grav 2017 14:36:0 0 1.010 Final Blood 2017 14:36:0 0 3+ Final pH 2017 14:36:0 0 6.5 Final Protein 2017 14:36:0 0 Negative Final Urobilinogen 2017 14:36:0 0 0.2 Final Nitrate 2017 14:36:0 0 Negative Final Leukocytes 2017 14:36:0 0 Negative Final Panel Description: CBC Final WBC 2017 14:53:0 0 6.4 K/uL 3.5-10.8 Final Lymphocyte% 2017 14:53:0 0 21.9 % 15.1-43.0 Final Mid% 2017 14:53:0 0 3.4 % 1.0-18.0 Final Gran% 2017 14:53:0 0 74.7 % 45.0-76.0 Final Lymphocyte # 2017 14:53:0 0 1.4 K/uL 0.9-5.2 Final Mid # 2017 14:53:0 0 0.2 K/uL 0.1-2.0 Final Gran # 2017 14:53:0 0 4.8 K/uL 1.2-6.8 Final RBC 2017 14:53:0 0 4.78 M/uL 3.80-5.20 Final Hemoglobin 2017 14:53:0 0 12.6 g/dL 11.5-16.0 Final Hematocrit 2017 14:53:0 0 38.4 % 36.0-49.0 Final MCV 2017 14:53:0 0 80 fL 81-100 L Final MCH 2017 14:53:0 0 26 pg 27-35 L Final MCHC 2017 14:53:0 0 32.9 g/dL 32.5-37.0 Final RDW 2017 14:53:0 0 16.5 % 11.5-15.4 H Final MPV 2017 14:53:0 0 6.4 fL 7.0-10.4 L Final Platelet Count 2017 14:53:0 0 329 K/uL 130-400 Final Panel Description: ESR Final ESR 2017 15:00:0 0 46 mm/hr 0-25 H Final Panel Description: IM Final AST 2017 09:45:0 0 22 U/L 5-34 Final Creatinine 2017 09:45:0 0 0.750 mg/dL 0.500-1.30 0 Final ALB 2017 09:45:0 0 4.5 g/dL 3.5-5.3 Final Uric Acid 2017 09:45:0 0 4.4 mg/dL 2.6-6.0 Final Alk Phos 2017 09:45:0 0 91 U/L 30-103 Final CK 2017 09:45:0 0 130 U/L 26-140 Final GFR 2017 09:45:0 0 84.4 mL/min/ 1.73 m2 Final If patient is -[place] multiply result by 1.210 Panel Description: CRP Final CRP 2017 09:45:0 0 4.72 MG/DL 0.00-0.60 H Final Panel Description: PROTEIN, TOTAL AND PROTEIN ELECTROPHORESIS W/ REFL USAMA Final PROTEIN, TOTAL 2017 09:41:0 0 7.2 g/dL 6.1-8.1 N Final ALBUMIN 2017 09:41:0 0 4.4 g/dL 3.8-4.8 N Final ALPHA 1 GLOBULIN 2017 09:41:0 0 0.4 g/dL 0.2-0.3 H Final ALPHA 2 GLOBULIN 2017 09:41:0 0 0.7 g/dL 0.5-0.9 N Final BETA 1 GLOBULIN 2017 09:41:0 0 0.5 g/dL 0.4-0.6 N Final BETA 2 GLOBULIN 2017 09:41:0 0 0.4 g/dL 0.2-0.5 N Final GAMMA GLOBULIN 2017 09:41:0 0 0.9 g/dL 0.8-1.7 N Final INTERPRETATION 2017 09:41:0 0 Final The increase i n the fwpze-9-naizphitm may bedue to increased sshai-0-glyxpdsqkqc , an acutephase reactant protein. No monoclonal immunoglobulin detected. Panel Description: COMPLEMENT COMPONENT C3C Fin al COMPLEMENT COMPONENT C3C 2017 09:41:0 0 165 mg/dL 83-193 N Final Panel Description: ANCA VASCULITIDES Final MYELOPEROXIDASE ANTIBODY 2017 09:41:0 0 <1.0 AI N Final Value Interpretation ----- <1.0 No Antibody Detected > or = 1.0 Antibody Detected Autoantibodies to myeloperoxidase (MPO) are commonlyassociated with the following small-vesselvasculi tides: microscopic polyangiitis,polyar teritis nodosa, Churg-Torsten syndrome,necrotizin g and crescentic glomerulonephritis andoccasionally granulomatosis with polyangiitis(GPA, Katya's). The perinuclear IFA pattern,(p-ANCA) is based largely on autoantibody to myeloperoxidase which serves as the primary antigen.These autoantibodies are present in active disease. PROTEINASE-3 ANTIBODY 2017 09:41:0 0 <1.0 AI N Final Value Interpretation ----- <1.0 No Antibody Detected > or = 1.0 Antibody Detected Autoantibodies to proteinase-3 (ME-3) are accepted ascharacteristic for granulomatosis with polyangiitis(GPA, Katya's), and are detectable in 95% of thehistologically proven cases. The cytoplasmic IFApattern, (c-ANCA), is based largely on autoantibody toPR-3 which serves as the primary antigen.These autoantibodies are present in active disease. Panel Description: IHLLMMNIICA-9-FBTVXNQUHM ENZY ME Final FQLLMGSTVWO-8-SHW VERTING ENZYME 2017 09:41:0 0 68 U/L 9-67 H Final Panel Description: DOMITILA Screen Final DOMITILA SCR A 2017 12:17:0 0 2.0 U/mL 0.0-10.0 Final DOMITILA SCR B 2017 12:17:0 0 3.0 U/mL 0.0-10.0 N Final Panel Description: CCP Final cCP 2017 12:36:0 0 0.1 U/mL 0.0-5.0 Final Panel Description: RF/3 Final RF IgM 2017 15:30:0 0 8.0 IU/mL 0.0-25.0 Final RF IgA 2017 15:30:0 0 6.0 Units/m L 0.0-35.0 Final RF IgG 2017 15:30:0 0 6.0 Units/m L 0.0-20.0 Final Advance Directives Directive Yes / No Effective Date File Name No Information Encounters Encounter Description Practice Location Reason(s) For Visit Diagnoses Date Provider Providers Copied on Encounter Office Consultation [facility] , [address], [place], [address], [place] tel:[phone] [facility] , possible connective tissue disease (chief complaint) Rash and other nonspecific skin eruptionPleu risyAbnormal immunologica l finding in serum, unspecified 201 [address] April Rowan. [facility] [address], [place], [address], [place]. tel:[phone] Referring Provider: Anum Hussein, [facility] [address], [place], [address]. tel:[phone] [facility] , [address], [place], [address], [place] tel:[phone] [facility] , No Information [address] Row[address]. [facility] [address], [place], [address], [place]. tel:[phone] Family History Family Member Type Diagnosis Age At Onset No Information Payers Payer name Insurance type Covered democrat ID Authorcuate thurman(s) [facility] [id number] Social History Type Description Quantity Date Captured Comments Alcohol Use Details Unknown Caffeine Use Details Unknown Tobacco Use Status No Information Smoking Status No Information Sex Female Vital Signs Date / Time: Height Weight BMI Pulse Rate Blood Pressure Temperature Respiratory Rate Body Surface Area Head Circumference Head Circ. Percentile Wt./Bill. Percentile BMI percentile Pulse Ox Inhaled Ox 12:49 PM 70.00 in 158.757 kg (350.00 lbs) 50.2 2 kg/m eter (2) 82 /min 140/82 mm[Hg] Chief Complaint And Reason For Visit From encounter dated '04/30/2018 13:00'. possible connective tissue disease (chief complaint) Reason For Referral Reason For Referral No Information History Of Present Illness Encounter Date Complaint History Of Prese nt Illness possible connective tissue disea se Functional Status Date Functional Assessmen t Pain Score 8/10 Instructions Date Instruction Additional Infor mation No Information Assessments Type Assessment Date assessment Rash and other nonspecific skin eruption assessment Pleurisy assessment Abnormal immunological finding i n serum, unspecified Mental Status Date Cognitive Assessment N/A Patient Care Teams Name Effective Dates (start - stop) Status Members No Information
--- OUTSIDE RECORDS SUMMARY | 2023-08-30 21:27 | XMS_ITS | Encounter Summary ---
Author Name Unknown Organization [facility] Address [address] [place] [address] Care Team Providers Care Flask Fitter Name Role Phone Unavailable Primary Care Provider Unavailabl e Encounter Details Date Type Department Care Team (Latest Contact Info) Description 08/17/2023 11:51 AM CDT - 08/17/2023 12:17 PM CDT Hospital Encounter Department of Laboratory Medicine and Pathology, [facility] in [place], [place] [address] [place] [address] Farshad Guzman M.B.B.S., M.D. [address] [place] [phone] Hematuria; Benign Essential Microscopic Hematuria Discharge [...] than three times a week 12/31/2018 Attends [employer] Services More than 4 times per year [...] Living Expenses Not hard at all 12/31/2018 [facility] - Occupational Stress [...] Master's degree (e.g., MA, MS, Murphy, MEd, PASSENGER CAR UPHOLSTERER APPRENTICE, BRIAN) 12/31/2018 Sex and Gender Information Value Date Recorded Sex Assigned at Female 06/22/2018 1:14 PM SCRAP SORTER Gender Identity Female 06/22/2018 1:14 PM SCRAP SORTER Sexual Orientation Straight 06/22/2018 1: 14 PM SCRAP SORTER documented as of this encounter Medications at [...] Note: Patient has seen Dr. Alex in [place] and Dr. Chen in [place] for Rheumatology care. She has been told many diagnosis' (including CTD, Sarcoidosis, Lupus and Panniculitis). She is wanting our opinion and some help with Diagnosis and future treatment recommendations. documented as of this encounter Procedures Procedure Name Priority Date/Time Associated Diagnosis Comments DIPSTICK, U Routine 08/17/2023 12:12 PM CDT MICROSCOPIC AUTOMATED Routine 08/17/2023 12:12 PM CDT PH, U Routine 08/17/2023 12:12 PM CDT ALBUMIN, RANDOM, U Routine 08/17/2023 12 :12 PM CDT Hematuria Benign Essential Microscopic Hematuria OSMOLALITY, U Routine 08/17/2023 12:12 PM CDT URINALYSIS WITH MICROSCOPIC Routine 08/17/2023 12:12 PM CDT Hematuria Benign Essential Microscopic Hematuria documented in this encounter Results * (ABNORMAL) Dipstick, Urine (08/17/2023 12:12 PM [...] Sellers M.D. LAB URINE PASCUAL [facility] [address] [facility] [place] [place] [facility] [place] [address] [place] [address] * pH, Urine (08/17/2023 12:12 PM CDT) pH, U 7.1 4.5 - 8.0 08/17/2023 1:1 2 PM CDT DTL Urine 08/17/2023 12:1 2 PM CDT 08/17/2023 12:39 PM CDT Cliff Sellers M.D. LAB URINE ORDE ARACELIS [facility] [address] [place] [address] * Osmolality, Urine (08/17/2023 12:12 PM CDT) Osmolality, U 162 150 - 1150 mOsm/kg 08/17/2023 1:12 PM CDT DTL Urine 08/17/2023 12:1 2 PM CDT 08/17/2023 12:39 PM CDT Cliff Sellers M.D. LAB URINE ORDE ARACELIS Performing Organization Address City/[facility] Co de Phone Number [facility] [address] [place] [address] * Microscopic Automated (08/17/2023 12:12 PM CDT) Pathologist [facility] Microscopy Normal 08/17/2023 12:58 PM CDT DTL RBC <3 <3 /hpf 08/17/2023 12:58 PM CDT DTL WBC None Seen /hpf 08/17/2023 12:58 PM CDT DTL Comment: ----REFERENCE VALUE---- <4 ??(Males) <11 (Females) Urine 08/17/2023 12:1 2 PM CDT 08/17/2023 12:39 PM CDT Cliff Sellers M.D. LAB URINE ORDE ARACELIS Performing Organization Address City/[facility]/ZIP Co de Phone Number [facility] [address] [place] [address] * Urinalysis, with Microscopic: Urine, Midstream (08/17/2023 [...] Cliff Sellers M.D. [place] [address], [facility] [address] [place] [address] * (ABNORMAL) Albumin, Random, Urine (08/17/2023 12:12 PM CDT) Albumin, Random, U 7.1 mg/L 2023 1:46 PM CDT DTL Comment: ----ADDITIONAL INFORMATION---- This test has been modified from the flute polisher's instructions. Its performance characteristics were determined by [facility] in a manner consistent with CLIA requirements. This test has not been cleared or approved by the U.S. Food and Drug Administration. Creatinine 22 mg/dL 08/17/2023 1:21 PM CDT DTL Albumin/Creatinine Ratio 32(H) <25 mg/g 08/17/2023 1:46 PM CDT DTL Urine (Urine, Midstream) 08/17/2023 12:12 PM CDT 08/17/2023 12:49 PM CDT Cliff Sellers M.D. LAB URINE PASCUAL [facility] [address] [place] [address], [facility] [place] [facility] [place] [address] [place] [address] documented in this encounter Visit Diagnoses Diagnosis Hematuria Benign Essential Microscopic Hematuria documented in this encounter
[2023-08-30 21:41] LABS: Basophils Absolute Auto 0.04 K/uL (0.00-0.30); Basophils Percent Auto 0.6 % (0.0-3.0); Eosinophils Absolute Auto 0.14 K/uL (0.00-0.50); Eosinophils Percent Auto 2.2 % (0.0-7.0); Hematocrit 35.4 % (33.0-51.0); Hemoglobin* 11.1 gm/dL (12.0-16.0); Immature Granulocytes Abs Auto 0.01 K/uL (0.00-0.30); Immature Granulocytes Pct Auto 0.2 %; Lymphocytes Absolute Auto 1.54 K/uL (0.90-2.90); Lymphocytes Percent Auto 24.5 % (20-44); Mean Corpuscular HGB Conc 31 gm/dL (32-36); Mean Corpuscular Hemoglobin 26 pg (26-34); Mean Corpuscular Volume 82 fL (80-100); Monocytes Percent Auto 6.8 % (0.0-11.0); Neutrophils Absolute Auto 4.13 K/uL (1.7-7.0); Neutrophils Percent Auto 65.7 % (42.0-72.0); Platelet Count* 251 K/uL (140-440); RDW Coefficient of Variation % 14.8 % (11.5-15.5); White Blood Count* 6.29 K/uL (4.50-11.00)
[2023-08-30 21:52] LABS: Lactate* 0.6 mmol/L (0.5-1.9)
[2023-08-30 21:54] LABS: Slide Review Reflex No
[2023-08-30 22:22] LABS: Albumin* 4.3 g/dL (3.3-5.0); Chloride* 109 mmol/L (96-114); Potassium* 3.7 mmol/L (3.6-5.1); Sodium* 139 mmol/L (135-149)
[2023-08-30 22:24] LABS: Anion Gap 0 mEq/L (7-15); Aspartate Amino Transferase* 27 U/L (12-35); Bilirubin Total* 0.3 mg/dL (0.1-1.5); Carbon Dioxide* 30 mmol/L (20-32); Creatinine* 0.9 mg/dL (0.5-1.5); Est. Creatinine Clearance* 62.27; Estimated Glomerular Filt Rate 72 ml/min; Total Protein* 7.3 g/dL (6.0-8.3)
[2023-08-30 22:25] LABS: Alanine Aminotransferase* 20 U/L (4-35); Alkaline Phosphatase* 100 U/L (40-150); Blood Urea Nitrogen* 21 mg/dL (7-30); Calcium* 8.8 mg/dL (8.4-10.6); Glucose* 97 mg/dL (60-115); INR 2.96 (0.91-1.10); Prothrombin Time 33.1 Seconds
[2023-08-30 22:42] LABS: Procalcitonin* 0.04 ng/mL (<0.50)
== END 2023-08-30 23:24 | disposition home or self-care (01) ==
PROVIDERS: Emergency Provider Family Medicine; PCP Family Medicine
DX: R51.9 Headache, unspecified (principal)
CPT/HCPCS: 36415; 70450; 80053; 83605; 84145; 85025; 85610; 99284

== ENCOUNTER 2023-10-19 08:00 | Day surgery (SDC) | payer BC, SELFPAY ==
--- OUTSIDE RECORDS SUMMARY | 2023-10-19 08:05 | XMS_ITS | Encounter Summary ---
Author Organization [facility] Address [address] [place] [address] Care Team Providers Care Clay House Worker Name Role Phone Unavailable Primary Care Provider Unavailabl e Encounter Details Date Type Department Care Team (Latest Contact Info) Description 08/17/2023 11:51 AM CDT - 08/17/2023 12:17 PM CDT Hospital Encounter Department of Laboratory Medicine and Pathology, [facility] in [place], [place] [address] [place] [address] Farshad Guzman M.B.B.S., M.Kd. [address] [place] [phone] Hematuria; Benign Essential Microscopic Hematuria Discharge [...] than three times a week 12/31/2018 Attends [employer] Services More than 4 times per year [...] Living Expenses Not hard at all 12/31/2018 [facility] - Occupational Stress Questionnaire Answer Date Recorded [...] Master's degree (e.g., MA, MS, Murphy, MEd, PROJECT BUYER, BRIAN) 12/31/2018 Sex and Gender Information Value Date Recorded Sex Assigned at Female 06/22/2018 1:14 PM PICKLE SOLUTION MAKER Gender Identity Female 06/22/2018 1:14 PM PICKLE SOLUTION MAKER Sexual Orientation Straight 06/22/2018 1: 14 PM PICKLE SOLUTION MAKER documented as of this encounter Medications at [...] Note: Patient has seen Dr. Alex in [place] and Dr. Chen in [place] for Rheumatology care. She has been told [...] Cliff Sellers M.D. LAB URINE PASCUAL [facility] Organization Address City/State/ZIP Co de Phone Number [facility] [address] [facility] [place] [address] [place] [address] * pH, Urine (08/17/2023 12:12 PM CDT) pH, U 7.1 4.5 - 8.0 08/17/2023 1:1 2 PM CDT DTL Urine 08/17/2023 12:1 2 PM CDT 08/17/2023 12:39 PM CDT Cliff Sellers M.D. LAB URINE ORDE ARACELIS Performing Organization Address City/[facility]/ZIP Co de Phone Number [facility] [address] [place] [address] [place] [address] * Osmolality, Urine (08/17/2023 12:12 PM CDT) Osmolality, U 162 150 - 1150 mOsm/kg 08/17/2023 1:12 PM CDT DTL Urine 08/17/2023 12:1 2 PM CDT 08/17/2023 12:39 PM CDT Cliff Sellers M.D. LAB URINE ORDE ARACELIS Performing Organization Address City/[facility] Co de Phone Number [facility] [address] [place] [address] [place] [address] * Microscopic Automated (08/17/2023 12:12 PM CDT) Pathologist [facility] Microscopy Normal 08/17/2023 12:58 PM CDT DTL RBC <3 <3 /hpf 08/17/2023 12:58 PM CDT DTL WBC None Seen /hpf 08/17/2023 12:58 PM CDT DTL Comment: ----REFERENCE VALUE---- <4 ??(Males) <11 (Females) Urine 08/17/2023 12:1 2 PM CDT 08/17/2023 12:39 PM CDT Cliff Sellers M.D. LAB URINE ORDE ARACELIS Performing Organization Address City/[facility]/ZIP Co de Phone Number [facility] [address] [place] [address] [place] [address] * Urinalysis, with Microscopic: Urine, Midstream (08/17/2023 [...] Cliff Sellers M.D. LAB URINE PASCUAL [facility] [address] [place] [address] * (ABNORMAL) Albumin, Random, Urine (08/17/2023 12:12 PM CDT) Albumin, Random, U 7.1 mg/L 2023 1:46 PM CDT DTL Comment: ----ADDITIONAL INFORMATION---- This test has been modified from the naval gunfire spotter's instructions. Its performance characteristics were determined by [facility] in a manner consistent with CLIA requirements. This test has not been cleared or approved by the U.S. Food and Drug Administration. Creatinine 22 mg/dL 08/17/2023 1:21 PM CDT DTL Albumin/Creatinine Ratio 32(H) <25 mg/g 08/17/2023 1:46 PM CDT DTL Urine (Urine, Midstream) 08/17/2023 12:12 PM CDT 08/17/2023 12:49 PM CDT Cliff Sellers M.D. LAB URINE ORDE ARACELIS [facility] [address] [place] [address], [facility] [place] [address] [place] [address] documented in this encounter Visit Diagnoses Diagnosis Hematuria Benign Essential Microscopic Hematuria documented in this encounter
--- OUTSIDE RECORDS SUMMARY | 2023-10-19 08:05 | XMS_ITS | Clinical Summary ---
Author Organization [facility] Address [address] [place] [address] Care Team Providers Care Locomotive Mechanic Apprentice Name Role Phone Unavailable Primary Care Provider Unavailabl e Source Comments Patient records contain information from all sites at [facility]. For routine questions regarding patient records, call [phone] during business hours, M-F 8:00 AM - 5:00 PM Central Time. Record requests for emergency care only can be directed to [phone] at any time.[facility] Allergies Active Allergy Reactions Criticality Noted Date [...] at bedtime. Pt takes 15 mg on Nia and 10mg the rest of the day [...] Visit Division of Nephrology and Hypertension in [place], [place] [address] [place] [phone] Mariano Ken M.B.BSandraSSandra Hematuria; Benign Essential Microscopic Hematuria 08/18/2023 Documentation Division of Nephrology and Hypertension in [address] [phone] Dequan Hutchison M.D. 08/17/2023 12:18 PM CDT - 08/17/2023 11:59 PM CDT Hospital Encounter Department of Radiology, [address] [phone] Farshad Guzman M.B.BSandraSNisreen Flores Hematuria; Benign Essential Microscopic Hematuria Discharge Disposition: Home or Self Care 08/17/2023 11:51 AM CDT - 08/17/2023 12:17 PM CDT Hospital Encounter Department of Laboratory Medicine and Pathology, [address] [address] Farshad Guzman M.B.BSandraSSandra, MCarlos Hematuria; Benign Essential Microscopic Hematuria Discharge Disposition: Home or Self Care 08/17/2023 11:51 AM CDT - 08/17/2023 12:17 PM CDT Hospital Encounter Department of Laboratory Medicine and Pathology, [address] [phone] Farshad Guzman M.B.BSandraSSandra, MCarlos Hematuria; Benign Essential Microscopic Hematuria Discharge Disposition: Home or Self Care 08/14/2023 10:00 AM CDT Clinical Communication Virtual Review in [address] [phone] Pre-visit Intake from Last 3 Months Family History Medical [...] Father Pj Depression Father Pj Diabetes Father Pj Heart disease Father Pj Obesity Father Pj [...] Arthritis Sister 2 Hilda Lymphoma Sister 2 Rosa M Lu in remission Thyroid disease Sister 2 Hilda [...] than three times a week 12/31/2018 Attends Ep[employer]op[employer] Services More than 4 times per year [...] Living Expenses Not hard at all 12/31/2018 [facility] of Occupat ional Health - Occupational Stress [...] Master's degree (e.g., MA, MS, Murphy, MEd, SOCIAL WORK THERAPIST, BRIAN) 12/31/2018 Sex and Gender Information Value Date Recorded Sex Assigned at Female 06/22/2018 1:14 PM CONTACT AND SERVICE CLERKS SUPERVISOR Gender Identity Female 06/22/2018 1:14 PM CONTACT AND SERVICE CLERKS SUPERVISOR Sexual Orientation Straight 06/22/2018 1: 14 PM CONTACT AND SERVICE CLERKS SUPERVISOR Last Filed Vital Signs Vital Sign Reading [...] Note: Patient has seen Dr. Alex in [place] and Dr. Chen in [place] for Rheumatology care. She has been told many diagnosis' (including CTD, Sarcoidosis, Lupus and Panniculitis). She is wanting our opinion and some help with Diagnosis and future treatment recommendations. Medical Devices Implanted Type Area Commercial Credit Analyst Device Identifier Shelf Expiration Date Model / Serial / Lot Cardiac Valve Prosthesis-04/04 Implanted:2004 by Odilon North M.D. (Quantity not on file) Cardiac Valve Prosthesis Heart [id number] / [id number] / Description:Aortic Valve Per MagResource: Nonclinical testing has demonstrated the Medtronic Open Pivot Heart Valve (Models 500, 501, 503, and 505) is MR Conditional. It can be scanned safely under the following conditions: -Static magnetic field of 3 Amanda or less -Spatial gradient field of 720 Gauss/cm -Maximum whole body average specific absorption rate (NICOLA) of 2.9 W/kg for 15 minutes ([facility] 10/30/2022) Hardware E.G. Pins/Screws/Rods -11/15/2006 Implanted:2006 [...] have anormal sonographic appearance. Cliff Sellers M.D. [facility] US PROCEDU RES * (ABNORMAL) Dipstick, Urine [...] Cliff Sellers M.D. LAB URINE PASCUAL HSU [facility] Organization Address City/State/ZIP Co de Phone Number [facility] [address] [facility] [place] [address] [place] [address] * Microscopic Automated (08/17/2023 12:12 PM CDT) Microscopy Normal 08/17/2023 12:58 PM CDT DTL RBC <3 <3 /hpf 08/17/2023 12:58 PM CDT DTL WBC None Seen /hpf 08/17/2023 12:58 PM CDT DTL Comment: ----REFERENCE VALUE---- <4 ??(Males) <11 (Females) Urine 08/17/2023 12:1 2 PM CDT 08/17/2023 12:39 PM CDT Cliff Sellers M.D. LAB URINE ORDE JONNSANDY Performing Organization Address City/[facility] Co de Phone Number [facility] [address] [place] [address] * pH, Urine (08/17/2023 12:12 PM CDT) pH, U 7.1 4.5 - 8.0 08/17/2023 1:1 2 PM CDT DTL Urine 08/17/2023 12:1 2 PM CDT 08/17/2023 12:39 PM CDT Cliff Sellers M.D. LAB URINE ORDE ARACELIS Performing Organization Address City/[facility] Co de Phone Number [facility] [address] [place] [address] * (ABNORMAL) Albumin, Random, Urine (08/17/2023 12:12 PM CDT) Albumin, Random, U 7.1 mg/L 2023 1:46 PM CDT DT Comment: ----ADDITIONAL INFORMATION---- This test has been modified from the dual hose cementer's instructions. Its performance characteristics were determined by [facility] in a manner consistent with CLIA requirements. This test has not been cleared or approved by the U.S. Food and Drug Administration. Creatinine 22 mg/dL 08/17/2023 1:21 PM CDT DTL Albumin/Creatinine Ratio 32(H) <25 mg/g 08/17/2023 1:46 PM CDT DTL Urine (Urine, Midstream) 08/17/2023 12:12 PM CDT 08/17/2023 12:49 PM CDT Cliff Sellers M.D. LAB URINE PASCUAL HSU Performing Organization Address City/[facility] Co de Phone Number [facility] 200 [place] [address], [facility] 200 [place] [address] * Osmolality, Urine (08/17/2023 12:12 PM CDT) Osmolality, U 162 150 - 1150 mOsm/kg 08/17/2023 1:12 PM CDT DTL Urine 08/17/2023 12:1 2 PM CDT 08/17/2023 12:39 PM CDT Cliff Sellers M.D. LAB URINE PASCUAL LUNSFORDSANDY Performing Organization Address [facility] Co de Phone Number [facility] [address] [place] [address], [facility] [address] [place] [address] * Urinalysis, with Microscopic: Urine, Midstream (08/17/2023 [...] Cliff Sellers M.D. LAB URINE PASCUAL HSU [facility] [address] [place] [address], [facility] DTL [facility] [address] [place] [address] * Renal Function Panel (08/17/2023 12:05 PM CDT) [facility] Potassium, S 4.4 3.6 - 5.2 mmol/L [...] Cliff Sellers M.D. LAB BLOOD ADD- ON [facility] [address] [place] [address], [place] [facility] [facility] [place] [address] [place] [address] * (ABNORMAL) Lipid Panel (01/12/2023 9:13 AM [...] CDT Phil Randolph M.D. LAB BLOOD ADD-ON [facility] [address] [place] [address], [facility] [place] [address] [place] [address] from Last 3 Months or Most Recently Relevant to Health Maintenance
--- OUTSIDE RECORDS SUMMARY | 2023-10-19 08:05 | XMS_ITS ---
Author Organization [facility] Address [address] [place] [address] Care Team Providers Care Pipe Organ Technician Name Role Phone Unavailable Unavailable Unavailable Surgery Details Not on file Complications Check Surgery Details section. Procedure Estimated Blood Loss Check Surgery Details section. Procedure Findings Check Surgery Details section. Procedure Specimens Taken Check Surgery Details section.
--- OUTSIDE RECORDS SUMMARY | 2023-10-19 08:05 | XMS_ITS | Encounter Summary ---
Author Organization [facility] Address [address] [place] [address] Care Team Providers Care Development Intern Name Role Phone Unavailable Primary Care Provider Unavailabl e Encounter Details Date Type Department Care Team (Latest Contact Info) Description 08/17/2023 11:51 AM CDT - 08/17/2023 12:17 PM CDT Hospital Encounter Department of Laboratory Medicine and Pathology, [facility] in [place], [place] [address] [place] [address] Farshad Guzman M.B.B.S., M.Kd. [address] [place] [phone] Hematuria; Benign Essential Microscopic Hematuria Discharge [...] Living Expenses Not hard at all 12/31/2018 [facility] of Occupat ional [facility] - Occupational Stress Questionnaire Answer Date Recorded [...] Master's degree (e.g., MA, MS, Murphy, MEd, CASING SOAKER, BRIAN) 12/31/2018 Sex and Gender Information Value Date Recorded Sex Assigned at Female 06/22/2018 1:14 PM SILVERWARE BUFFER Gender Identity Female 06/22/2018 1:14 PM SILVERWARE BUFFER Sexual Orientation Straight 06/22/2018 1: 14 PM SILVERWARE BUFFER documented as of this encounter Medications at [...] Note: Patient has seen Dr. Alex in [place] and Dr. Chen in [place] for Rheumatology care. She has been told [...] Cliff Sellers M.D. LAB BLOOD ADD- ON [facility] [address] [place] [address], [place] DTL [facility] [address] [place] [address] documented in this encounter Visit Diagnoses Diagnosis Hematuria Benign Essential Microscopic Hematuria documented in this encounter
--- OUTSIDE RECORDS SUMMARY | 2023-10-19 08:05 | XMS_ITS | Encounter Summary ---
Author Organization [facility] Address [address] [place] [address] Care Team Providers Care Pulp Making Plant Operator Name Role Phone Unavailable Primary Care Provider Unavailabl e Encounter Details Date Type Department Care Team (Late st Contact Info) Description 08/18/2023 Documentation Division of Nephrology and Hypertension in [place], [place] [address] [place] [phone] Dequan Hutchison M.D. [address] [place] [address] Social History Tobacco Use Types Packs/Day Years [...] than three times a week 12/31/2018 Attends Denominational Services More than 4 times per year [...] Living Expenses Not hard at all 12/31/2018 [facility] of Occupat ional Health - Occupational Stress [...] Master's degree (e.g., MA, MS, Murphy, MEd, BEATER AND PULPER FEEDER, BRIAN) 12/31/2018 Sex and Gender Information Value Date Recorded Sex Assigned at Female 06/22/2018 1:14 PM GLASS DESIGNER Gender Identity Female 06/22/2018 1:14 PM GLASS DESIGNER Sexual Orientation Straight 06/22/2018 1: 14 PM GLASS DESIGNER documented as of this encounter [place] Notes [...] Note: Patient has seen Dr. Alex in [place] and Dr. Chen in [place] for Rheumatology care. She has been told many diagnosis' (including CTD, Sarcoidosis, Lupus and Panniculitis). She is wanting our opinion and some help with Diagnosis and future treatment recommendations. documented as of this encounter Visit Diagnoses Not on filedocumented in this encounter
--- OUTSIDE RECORDS SUMMARY | 2023-10-19 08:05 | XMS_ITS | Encounter Summary ---
Author Organization [facility] Address [address] [place] [address] Care Team Providers Care Behavior Specialist Name Role Phone Unavailable Primary Care Provider Unavailabl e Reason for Referral * Outpatient (Routine) - Authorized Specialty Diagnoses / Procedures Referred By Brigido byrne Referred To Contact Nephrology and Hypertension Mariano Ken M.B.B.S. [address] [place] [address] [facility] Referral ID Status Reason Start Date Expiration Date V isits Requested Visits Authorized [id number] Authorized 08/18/2023 02/16/2025 1 1 Reason for Visit * Outpatient (Routine) - Closed Specialty Diagnoses / Procedures Referred By Brigdio byrne Referred To Contact Nephrology and Hypertension Diagnoses Hematuria Benign Essential Microscopic Hematuria Farshad Guzman M.B.BSandraSSandra, MCarlos [address] [place] [phone] [facility] Referral ID Status Reason Start Date Expiration Date Visits Re quested Visits Authorized [id number] Closed 11/09/2022 11/08/2025 1 1 Encounter Details Date Type Department Care Team (Latest Contact Info) Description 08/18/2023 3:30 PM CDT Office Visit Division of Nephrology and Hypertension in [place], [place] [address] [place] [address] Mariano Ken M.B.B.S. [address] [place] [address] Hematuria; Benign Essential Microscopic Hematuria Social History [...] than three times a week 12/31/2018 Attends Shinto Services More than 4 times per year [...] Living Expenses Not hard at all 12/31/2018 [facility] of Occupat ional Health - Occupational Stress [...] Master's degree (e.g., MA, MS, Murphy, MEd, BRIDGE OPENER, BRIAN) 12/31/2018 Sex and Gender Information Value Date Recorded Sex Assigned at Female 06/22/2018 1:14 PM CNC MACHINIST 2ND SHIFT Gender Identity Female 06/22/2018 1:14 PM CNC MACHINIST 2ND SHIFT Sexual Orientation Straight 06/22/2018 1: 14 PM CNC MACHINIST 2ND SHIFT documented as of this encounter Last Filed [...] this encounter [place] Notes * Mariano Ken M.B.BSandraSSandra - 08/18/2023 3:30 PM CDT Subjective: Mr. [...] Note: Patient has seen Dr. Alex in [place] and Dr. Chen in [place] for Rheumatology care. She has been told many diagnosis' (including CTD, Sarcoidosis, Lupus and Panniculitis). She is wanting our opinion and some help with Diagnosis and future treatment recommendations. documented as of this encounter Visit Diagnoses Diagnosis Hematuria Benign Essential Microscopic Hematuria documented in this encounter
--- OUTSIDE RECORDS SUMMARY | 2023-10-19 08:05 | XMS_ITS | Referral Summary ---
Author Organization [facility] Address [address] [place] [address] Care Team Providers Care Employment Coordinator Name Role Phone Unavailable Primary Care Provider Unavailabl e Source Comments Patient records contain information from all sites at [facility]. For routine questions regarding patient records, call [phone] during business hours, M-F 8:00 AM - 5:00 PM Central Time. Record requests for emergency care only can be directed to [phone] at any time.[facility] Encounters Date Type Department Care Team Description 08/18/2023 Documentation Division of Nephrology and Hypertension in [place], [place] [address] [place] [phone] Dequan Hutchison M.D. 08/18/2023 3:30 PM CDT Office Visit Division of Nephrology and Hypertension in [address] [phone] Mariano Ken M.B.B.SSandra Hematuria; Benign Essential Microscopic Hematuria 08/17/2023 11:51 AM CDT - 08/17/2023 12:17 PM CDT Hospital Encounter Department of Laboratory Medicine and Pathology, [place], [place] [address] [place] [phone] Farshad Guzman M.B.BSandraSSandra, Nisreen Hematuria; Benign Essential Microscopic Hematuria Discharge Disposition: Home or Self Care 08/17/2023 11:51 AM CDT - 08/17/2023 12:17 PM CDT Hospital Encounter Department of Laboratory Medicine and Pathology, [place], [place] [address] [place] [phone] Farshad Guzman M.B.B.S., M.D. Hematuria; Benign Essential Microscopic Hematuria Discharge Disposition: Home or Self Care 08/17/2023 12:18 PM CDT - 08/17/2023 11:59 PM CDT Hospital Encounter Department of Radiology, [facility], in [place], [place] [address] [place] [phone] Farshad Guzman M.B.B.S., M.D. Hematuria; Benign Essential Microscopic Hematuria Discharge Disposition: Home or Self Care 08/14/2023 10:00 AM CDT Clinical Communication Virtual Review in [place], [place] 200 [place] [address] Pre-visit Intake from Last 3 Months Allergies Active Allergy [...] than three times a week 12/31/2018 Attends Confucianism Services More than 4 times per year [...] Living Expenses Not hard at all 12/31/2018 [facility] of Occupat ional Health - Occupational [...] Master's degree (e.g., MA, MS, Murphy, MEd, SOLDERING MACHINE OPERATOR AUTOMATIC, BRIAN) 12/31/2018 Sex and Gender Information Value Date Recorded Sex Assigned at Female 06/22/2018 1:14 PM WEB PRESS OPERATOR ASSISTANT Gender Identity Female 06/22/2018 1:14 PM WEB PRESS OPERATOR ASSISTANT Sexual Orientation Straight 06/22/2018 1: 14 PM WEB PRESS OPERATOR ASSISTANT Last Filed Vital Signs Vital Sign Reading [...] Note: Patient has seen Dr. Alex in [place] and Dr. Chen in [place] for Rheumatology care. She has been told many diagnosis' (including CTD, Sarcoidosis, Lupus and Panniculitis). She is wanting our opinion and some help with Diagnosis and future treatment recommendations. Medical Devices Implanted Type Area Radio Script Writer Device Identifier Shelf Expiration Date Model / Serial / Lot Cardiac Valve Prosthesis-04/04 Implanted:2004 by Odilon North M.D. (Quantity not on file) Cardiac Valve Prosthesis Heart [id number] / [id number] / Description:Aortic Valve Per MagResource: Nonclinical testing has demonstrated the Medtronic Open Pivot Heart Valve (Models 500, 501, 503, and 505) is MR Conditional. It can be scanned safely under the following conditions: -Static magnetic field of 3 Amanda or less -Spatial gradient field of 720 Gauss/cm -Maximum whole body average specific absorption rate (NICOLA) of 2.9 W/kg for 15 minutes ([facility] 10/30/2022) Hardware E.G. Pins/Screws/Rods -11/15/2006 Implanted:2006 (Quantity [...] anormal sonographic appearance. Cliff Sellers M.D. [facility] US PROCEDU RES * (ABNORMAL) Dipstick, Urine [...] Cliff Sellers M.D. LAB URINE ORDE ARACELIS [facility] [address] [place] [address], [facility] [address] [place] [address] * Microscopic Automated (08/17/2023 12:12 PM CDT) Microscopy Normal 08/17/2023 12:58 PM CDT DTL RBC <3 <3 /hpf 08/17/2023 12:58 PM CDT DTL WBC None Seen /hpf 08/17/2023 12:58 PM CDT DTL Comment: ----REFERENCE VALUE---- <4 ??(Males) <11 (Females) Urine 08/17/2023 12:1 2 PM CDT 08/17/2023 12:39 PM CDT Cliff Sellers M.D. LAB URINE KRISTIANE ARACELIS Performing Organization Address [facility]/ZIP Co de Phone Number [facility] [address] [place], [place] [phone] [place] [address] 200 [place] [address] * pH, Urine (08/17/2023 12:12 PM CDT) pH, U 7.1 4.5 - 8.0 08/17/2023 1:1 2 PM CDT DTL Urine 08/17/2023 12:1 2 PM CDT 08/17/2023 12:39 PM CDT Cliff Sellers M.D. LAB URINE ORDE ARACELIS [facility] [address] [place] [address], [facility] [address] [place] [address] * (ABNORMAL) Albumin, Random, Urine (08/17/2023 12:12 PM CDT) [facility] Albumin, Random, U 7.1 mg/L 2023 1:46 PM CDT [facility] Comment: ----ADDITIONAL INFORMATION---- This test has been modified from the account service representative's instructions. Its performance characteristics were determined by [facility] in a manner consistent with CLIA requirements. This test has not been cleared or approved by the U.S. Food and Drug Administration. Creatinine 22 mg/dL 08/17/2023 1:21 PM CDT DTL Albumin/Creatinine Ratio 32(H) <25 mg/g 08/17/2023 1:46 PM CDT DTL Urine (Urine, Midstream) 08/17/2023 12:12 PM CDT 08/17/2023 12:49 PM CDT Cliff Sellers M.D. LAB URINE PASCUAL HSU Performing Organization Address City/[facility]/ZIP Co de Phone Number [facility] [address] [place] [address], [facility] [address] [place] [address] * Osmolality, Urine (08/17/2023 12:12 PM CDT) [facility] Osmolality, U 162 150 - 1150 mOsm/kg 08/17/2023 1:12 PM CDT DT Urine 08/17/2023 12:1 2 PM CDT 08/17/2023 12:39 PM CDT Cliff Sellers M.D. LAB URINE PASCUAL HSU Performing Organization Address City/[facility]/ZIP Co de Phone Number [facility] [address] [place] [address], [facility] [address] [place] [address] * Urinalysis, with Microscopic: Urine, Midstream (08/17/2023 [...] Cliff Sellers M.D. LAB URINE PASCUAL HSU [facility] [address] [place] [address], [facility] [address] [place] [address] * Renal Function Panel (08/17/2023 12:05 PM CDT) Pathologist [facility] Potassium, S 4.4 3.6 - 5.2 mmol/L [...] Cliff Sellers M.D. LAB BLOOD ADD- ON [facility] [address] [place] [address], [facility] [address] [place] [address] * (ABNORMAL) Lipid Panel (01/12/2023 9:13 AM [...] Phil Randolph M.D. LAB BLOOD ADD-ON [facility] [address] [place] [address], [facility] DTSt[facility] LaboratoriesY[facility] [address] [place] [address] from Last 3 Months or Most Recently Relevant to Health Maintenance
--- OUTSIDE RECORDS SUMMARY | 2023-10-19 08:05 | XMS_ITS | Encounter Summary ---
Author Organization [facility] Address [address] [place] [address] Care Team Providers Care Orchid Hand Name Role Phone Unavailable Primary Care Provider Unavailabl e Reason for Referral * Outpatient (Routine) - Closed Specialty Diagnoses / Procedures Referred By Brigido byrne Referred To Contact Diagnoses Hematuria Benign Essential Microscopic Hematuria Procedures US Kidneys Bilateral with Bladder Farshad Guzman M.B.B.S., M.D. [address] [place] [phone] [facility] Referral ID Status Reason Start Date Expiration Date Visits Re quested Visits Authorized [id number] Closed 11/09/2022 11/09/2023 1 1 Reason for Visit * Outpatient (Routine) - Closed Specialty Diagnoses / Procedures Referred By Brigido byrne Referred To Contact Diagnoses Hematuria Benign Essential Microscopic Hematuria Procedures US Kidneys Bilateral with Bladder Farshad Guzman M.B.B.S., M.D. [address] [place] [phone] [facility] Referral ID Status Reason Start Date Expiration Date Visits Re quested Visits Authorized [id number] Closed 11/09/2022 11/09/2023 1 1 Encounter Details Date Type Department Care Team (Latest Contact Info) Description 08/17/2023 12:18 PM CDT - 08/17/2023 11:59 PM CDT Hospital Encounter Department of Radiology, [facility], in [place], [place] [address] [place] [address] Farshad Guzman M.B.B.S., M.D. [address] [place] [phone] Hematuria; Benign Essential Microscopic Hematuria Discharge Disposition: [...] than three times a week 12/31/2018 Attends Pentecostal Services More than 4 times per year [...] Living Expenses Not hard at all 12/31/2018 [facility] [place] of Occupat ional Health - Occupational Stress [...] Master's degree (e.g., MA, MS, Murphy, MEd, MEDICAL CENTER DIRECTOR, BRIAN) 12/31/2018 Sex and Gender Information Value Date Recorded Sex Assigned at Female 06/22/2018 1:14 PM THRESHING OPERATOR Gender Identity Female 06/22/2018 1:14 PM THRESHING OPERATOR Sexual Orientation Straight 06/22/2018 1: 14 PM THRESHING OPERATOR documented as of this encounter Medications at [...] 4000 mL 10/28/2022 rosuvastatin (CRESTOR) 5 mg tabletIndications:Abelino verduzco Cardiac Sudden Family History,Hyperlipidemia Mixed,Morbid Obesity Body [...] Note: Patient has seen Dr. Alex in [place] and Dr. hCen in [place] for Rheumatology care. She has been told [...] have anormal sonographic appearance. Cliff Sellers M.D. [facility] US PROCEDU RES documented in this encounter Visit Diagnoses Diagnosis Hematuria Benign Essential Microscopic Hematuria documented in this encounter
--- OUTSIDE RECORDS SUMMARY | 2023-10-19 08:06 | XMS_ITS | Encounter Summary ---
Author Organization [facility] Address [address] [place] [address] Care Team Providers Care [place] Polisher Name Role Phone Unavailable Primary Care Provider Unavailabl e Encounter Details Date Type Department Care Team (Late st Contact Info) Description 10/06/2022 Orders Only Division of Rheumatology in [place], [place] [address] [place] [phone] [facility], Provider Social History Tobacco Use Types Packs/Day [...] than three times a week 12/31/2018 Attends [employer] Services More than 4 times per year [...] Living Expenses Not hard at all 12/31/2018 [facility] of Occupat ional Health - Occupational Stress [...] Master's degree (e.g., MA, MS, Murphy, MEd, PASTORAL ASSISTANT, BRIAN) 12/31/2018 Sex and Gender Information Value Date Recorded Sex Assigned at Female 06/22/2018 1:14 PM HEAD NURSE Gender Identity Female 06/22/2018 1:14 PM HEAD NURSE Sexual Orientation Straight 06/22/2018 1: 14 PM HEAD NURSE documented as of this encounter Plan of Treatment Not on file documented as of this encounter Goals Goal Patient Goal Type Associated Problems Recent Progress Patient-Stated? Author 3rd Opinion General Yes Rhonda Villalta, M.S.N., R.N. Note: Patient has seen Dr. Alex in [place] and Dr. Chen in [place] for Rheumatology care. She has been told many diagnosis' (including CTD, Sarcoidosis, Lupus and Panniculitis). She is wanting our opinion and some help with Diagnosis and future treatment recommendations. documented as of this encounter Visit Diagnoses Not on filedocumented in this encounter
--- OUTSIDE RECORDS SUMMARY | 2023-10-19 08:06 | XMS_ITS | Encounter Summary ---
Author Organization [facility] Address [address] [place] [id number] Care Team Providers Care [employer] Grip Name Role Phone Unavailable Primary Care Provider Unavailabl e Reason for Visit * Reason Onset Date Comments Reschedule 06/25/2023 Encounter Details Date Type Department Care Team (Late st Contact Info) Description 06/25/2023 Clinical Communication Department of Nephrology in [address] [phone] Farshad Guzman M.B.B.S., M.Kd. [address] [place] [phone] Reschedule Social History Tobacco Use Types Packs/Day [...] than three times a week 12/31/2018 Attends [employer] Services More than 4 times per year [...] Not hard at all 12/31/2018 [facility] [place] of Occupat ional Health - Occupational Stress [...] Master's degree (e.g., MA, MS, Murphy, MEd, GETTERER, BRIAN) 12/31/2018 Sex and Gender Information Value Date Recorded Sex Assigned at Female 06/22/2018 1:14 PM ACTIVITY SPECIALIST Gender Identity Female 06/22/2018 1:14 PM ACTIVITY SPECIALIST Sexual Orientation Straight 06/22/2018 1: 14 PM ACTIVITY SPECIALIST documented as of this encounter Plan of Treatment Not on file documented as of this encounter Goals Goal Patient Goal Type Associated Problems Recent Progress Patient-Stated? Author 3rd Opinion General Yes Rhonda Villalta M.S.N., R.N. Note: Patient has seen Dr. Alex in [place] and Dr. Chen in [place] for Rheumatology care. She has been told many diagnosis' (including CTD, Sarcoidosis, Lupus and Panniculitis). She is wanting our opinion and some help with Diagnosis and future treatment recommendations. documented as of this encounter Visit Diagnoses Not on filedocumented in this encounter
--- OUTSIDE RECORDS SUMMARY | 2023-10-19 08:06 | XMS_ITS | Clinical Summary ---
Author Organization [facility] Address [place], [place] [address] Care Team Providers Care Smoke And Flame Specialist Name Role Phone Dorota Loera MD Primary Care Provide r Henry Alex MD Unavailable [phone] Allergies Active Allergy Reactions Criticality Noted Date Comments Adhesive Tape Contact Dermatitis Low 09/14/2006 Gluten Edema High 01/06/2019 Hydroxychloroquine Rash Medium 08/03/2017 Plaquenil Lactose Edema High 01/06/2019 Latex, Natural Rubber Itching Low 08/28/2022 Morphine Itching High 09/14/2006 Prednisone Hyperglycemia 08/28/2022 Cause blood sugars to rise. Boyd suggested not to use. Medications Medication Sig Dispensed Refills Start Date End Date Status clindamycin (CLEOCIN) 150 mg capsule 150 mg. Take prior to dental work 5 Active Cholecalciferol, Vitamin D3, (VITAMIN D-3) 5,000 unit tab Take 1 tablet by mouth once daily. 0 8 Active acetaminophen (TYLENOL EXTRA STRGTH) 500 mg tabletIndications:A rthralgia, unspecified joint Take 2 tablets by mouth every 6 hours if needed. Max acetaminophen dose: 4000mg in 24 hrs. 0 9 Active Magnesium Oxide 500 mg capIndications:Arth ralgia, unspecified joint Take 2 tablets at supper 100 Cap 9 Active medication order composerIndications :Takes dietary supplements Take by mouth 1 multivitamin tab per day. 0 0 Active CPAPIndications:ULYSSES on CPAP CPAP machine for home use at pressure 11 cmw, full face mask x1/3month with a full face cushion x1/mo 1 Each 3 Active durable medical equipment (DME)Indications:Pr imary osteoarthritis of both first carpometacarpal joints right and left comfortcool, large 2 Each 3 Active DULoxetine (CYMBALTA) 20 mg Delayed-release capsuleIndications: Connective tissue disease (HC),Adjustment disorder with depressed mood Take 1 Capsule (20 mg) by mouth once daily. 90 Capsule 3 3 Active levothyroxine (SYNTHROID) 137 mcg tabletIndications:H ypothyroidism, unspecified type Take 1 Tablet (137 mcg) by mouth once daily. 90 Tablet 3 3 Active dilTIAZem CD (CARDIZEM CD) 120 mg extended release 24 hr capsuleIndications: Paroxysmal atrial fibrillation (HC) Take 1 Capsule (120 mg) by mouth once daily. 90 Capsule 3 3 Active rosuvastatin (CRESTOR) 5 mg tabletIndications:H yperlipidemia, unspecified hyperlipidemia type Take 1 Tablet (5 mg) by mouth once daily with evening meal. 90 Tablet 3 3 Active Graduated Compression StockingsIndication s:Connective tissue disease (HC),Bilateral leg edema For personal use. 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 10 mL 4 Active warfarin (COUMADIN) 10 mg tabletIndications:P aroxysmal atrial fibrillation (HC),Anticoagulatio n monitoring, INR range 2-3,Aortic valve replaced Take by mouth 10/13: Hold; 10/14: Hold; 10/15: Hold; 10/16: Hold; 10/17: Hold; Otherwise 5 mg every Mon; 10 mg all other days in the evening OR as directed 4 Active predniSONE (DELTASONE) 20 mg tabletIndications:B union, right foot 2 tablets once daily for 3 days then 1 tablet once daily for 3 days then 1/2 tablet once daily for 4 days. 11 Tablet 3 10/13/19 24 Discontinue d(*Med complete/Re gimen complete/Le sarah of care change) warfarin (COUMADIN) 10 mg tabletIndications:P aroxysmal atrial fibrillation (HC),Anticoagulatio n monitoring, INR range 2-3,Aortic valve replaced TAKE BY MOUTH 5 mg (10 mg x 0.5) every Mon; 10 mg (10 mg x 1) all other days IN THE EVENING OR DIRECTED 86 Tablet 1 4 10/14/19 24 Discontinue d(Other - add note to specify (E-cancel not sent)) Active Problems Problem Noted Date Diagnosed Date Mixed connective tissue disease 09/09/2018 Connective tissue disease 07/03/2017 Kidney stone 04/10/2014 Benign microscopic hematuria 01/20/2014 Anticoagulation monitoring, INR range 2-3 2013 ACP (advance care planning) 04/07/2012 Overview: Patient has identified Health Care Agent(s): No Add Health Care Agents: No,Sw provided HCD and explained this.,[employer] [phone] would be decision maker Patient has Advance [...] Encounters Date Type Department Care Team Description 10/14/2023 Telephone [facility] [address] [place] [address] 1, [facility] Anticoagulation (BPA Lovenox ) 10/14/2023 Telephone [facility] [address] [place] [address] 1, [facility] Anticoagulation (Lovenox Bridging Clarity ) 10/14/2023 Anticoagulation (warfarin) [facility] [address] [place] [address] 1, [facility] Anticoagulation (Lab / PCP Visit ) 10/13/2023 3:30 PM CDT Preop Visit [facility] [address] [place] [address] Dorota Loera MD Preoperative Exam (10/19/23 [facility] right foot ) 10/13/2023 Travel 09/16/2023 3:15 PM CDT Orders Only [address] [place] [address] Lab, [place] [facility] 09/16/2023 Anticoagulation (warfarin) [facility] [address] [place] [address] 1, [facility] Anticoagulation 09/16/2023 Travel 09/07/2023 7:00 AM CDT Orders Only [facility] [place] [address] Lab, [place] [facility] 09/07/2023 Travel 09/04/2023 [address] [address] Dorota Loera MD Lab (Orders for urine labs) 08/30/2023 Orders Only [facility] Scanner 1 scan: (1-Ord) [place], CT HEAD/BRAIN WO CON, 08/30/2023 08/05/2023 3:15 PM CDT Orders Only [facility] [address] [facility] [address] [place] [place] 08/05/2023 Anticoagulation (warfarin) [facility] [address] [place] [address] 1, [facility] Anticoagulation 08/05/2023 Travel from Last 3 Months Immunizations Name Administration Dates Next Due AMB Influenza, IIV3 (Age >=3 years)(Flu Clinic Only) 03/07/2011 COVID-19 vaccine (kingsky-Bio NTech 30mcg/0.3mL) 12YO+ BIVALENT PF, MDV 02/11/2022 COVID-19 vaccine (Pfizer-Bio NTech 30mcg/0.3mL) 12YO+ JASON-SUCROSE PF, MDV 10/21/2021 [...] of Communication with Friends and Fami ly 0 10/13/2023 Financial Resource Strain Answer Date R ecorded Difficulty of Paying Living Expenses 3 10/13/2023 Difficulty of Paying Living Expenses Not on file 10/13/2023 Food Insecurity Answer Date Recorded Worried About Running Out of Food in the Last Ye ar 1 10/13/2023 Transportation Needs Answer Date Record ed Lack of Transportation (Medical) 1 10/13/2023 Housing Stability Answer Date Recorded Unable to Pay for Housing in the Last Year 1 10/13/2023 Sex and Gender Information Value Date Recorded Sex Assigned at Not on file Gender Identity Not on file Sexual Orientation Not on file Obstetrics History Last Filed Vital Signs Vital Sign Reading Time Taken Comments Blood Pressure 135/71 10/13/2023 3:25 PM CDT Pulse 62 10/13/2023 3:25 PM CDT Temperature 37.3 ??C (99.1 ??F) 01/30/2023 8:26 AM CD T Respiratory Rate 18 12/23/2022 9:08 AM CDT Oxygen Saturation 96% 10/13/2023 3:25 PM CDT Inhaled Oxygen Concentration - - Weight 148.2 kg (326 lb 12.8 oz) 10/13/2023 3:25 PM CDT Height 175.3 cm (5' 9) 10/13/2023 3:25 PM CDT Body Mass Index 48.26 10/13/2023 3:25 PM CDT Plan of Treatment Upcoming Encounters Date Type Department Care Team (Late st Contact Info) Description 10/19/2023 8:30 AM CDT Office Visit [facility] at [facility] [address] [place] [address] Aaron Singh DPM [address] [place] [address] Arrived 10/21/2023 1:00 PM CDT Office Visit [facility] [address] [place] [address] Aaron Singh DPM [address] [place] [address] 11/04/2023 11:00 AM CDT Office Visit [facility] [address] [place] [address] Aaron Singh DPM [address] [place] [address] Health Maintenance Due Date Last Done Comments HIV for age 15-65 10/10/1974 Zoster (shingles) series for age 50+ (1 of 2) 10/10/2009 COVID-19 vaccine series (2022-24 season) 2023 02/11/2022, 10/21/2021, 03/14/2021, Additional history exists Mammogram for age 45-75 11/29/2023 11/29/19 23, 11/15/2021, 09/26/2020, Additional history exists Influenza for age 50-64 01/17/2024 01/31/20 23, 02/11/2022, 03/14/2021, Additional history exists Depression screening for age 12+ 02/11/2024 02/10/2023, 02/03/2023, 02/02/2023, Additional history exists BMI (ht and wt on same day) for age 18+ 10/12/2024 10/13/2023, 03/05/2023, 10/23/2022, Additional history exists Tetanus booster 01/03/2025 01/03/2015, 10[facility]17 [facility] 11/12/2007, Additional history exists Lipids for age 45-75 10/12/2028 10/13/2023, 01/10/2022, 01/08/2021, Additional history exists Colonoscopy through age 75 01/08/203001/08 (Verified in Care Everywhere or Patient Record), 10/18/2009, 10/16/2009 Tdap Completed 01/03/2015, 11/12/2007 Hepatitis C screening for age 18-79 Completed 07/11/2019 Pneumococcal series for age 6-64 Aged Out No longer eligible based on patient's age to complete this topic Medical Devices Implanted Type Area Institutional Research Director Device Identifier Shelf Expiration Date Model / Serial / Lot Valve Aortic 22mm [id number] - [id number] Implanted:Qty: 1 on 04/04/2005 at [facility] Heart Implants N/A: Aorta [employer] [id number] / [id number] / [id number] - [id number] Implanted:Qty: 1 on 04/04/2005 at [facility] Surgery Oncology [id number] / / Procedures Procedure Name Priority Date/Time Associated Diagnosis Comments PROTIME-INR STAT 10/13/2023 4:40 PM CDT Paroxysmal atrial fibrillation (HC) Anticoagulation monitoring, INR range 2-3 Aortic valve replaced CBC WITH AUTO DIFFERENTIAL Routine 10/13/2023 4:40 PM CDT Preoperative examination SEDIMENTATION RATE Routine 10/13/2023 4: 40 PM CDT Connective tissue disease (HC) C-REACTIVE PROTEIN Routine 10/13/2023 4: 40 PM CDT Connective tissue disease (HC) CBC WITH AUTO DIFFERENTIAL Routine 10/13/2023 4:40 PM CDT Preoperative examination BASIC METABOLIC PANEL Routine 10/13/2023 4:40 PM CDT Connective tissue disease (HC) LIPID PANEL W REFLEX MEASURED LDL Routine 10/13/2023 4:40 PM CDT Lipid screening TSH WITH REFLEX Routine 10/13/2023 4:40 PM CDT Other specified hypothyroidism INR,POCT Routine 09/16/2023 3:18 PM CDT Paroxysmal atrial fibrillation (HC) Anticoagulation monitoring, INR range 2-3 Aortic valve replaced URINE ALBUMIN TO CREATININE RATIO, RANDOM Routine 09/07/2023 7:07 AM CDT Connective tissue disease (HC) SCAN-CT INTERPRETATION 12:00 AM CDT INR,POCT Routine 08/05/2023 3:03 PM CDT Paroxysmal atrial fibrillation (HC) Anticoagulation monitoring, INR range 2-3 Aortic valve replaced XR MAMMO BILAT SCREENING Routine 11/28/2022 2:11 PM CDT Visit for screening mammogram ANTI HCV Routine 07/11/2019 4:20 PM OVERHEAD LINE WORKER Need for hepatitis C screening test from Last 3 Months or Most Recently Relevant to Health Maintenance Results * SEDIMENTATION RATE (10/13/2023 4:40 PM CDT) Pathologist [facility] SEDIMENTATION RATE 26 <30 mm/hr 2023 1:58 PM CDT [facility] Blood BLOOD SPECIMEN / Unknown Venipuncture / Unknown 10/13/2023 4:40 PM CDT 10/13/2023 4:45 PM CDT Dorota Loera MD HEMATOLOGY [facility] [address] [place] [address], * (ABNORMAL) CBC WITH AUTO DIFFERENTIAL (10/13/2023 4:40 PM CDT) Pathologist [facility] WHITE BLOOD COUNT 8.6 4.5 - 11.0 thou/cu mm 10/13/2023 4:50 PM CDT [facility] RED BLOOD COUNT 4.12 4.00 - 5.20 mil/cu mm 10/13/2023 4:50 PM CDT [facility] HEMOGLOBIN 11.0(L) 12.0 - 16.0 g/dL 10/13/2023 4:50 PM CDT [facility] HEMATOCRIT 33.8 33.0 - 51.0 % 10/13/2023 4:50 PM CDT [facility] MCV 82 80 - 100 fL 10/13/2023 4:50 PM CDT [facility] MCH 26.7 26.0 - 34.0 pg 10/13/2023 4:50 PM CDT [facility] MCHC 32.5 32.0 - 36.0 g/dL 10/13/2023 4:50 PM CDT [facility] RDW 15.3 11.5 - 15.5 % 10/13/2023 4:50 PM CDT [facility] PLATELET COUNT 274 140 - 440 thou/cu mm 10/13/2023 4:50 PM CDT [facility] MPV 9.7 6.5 - 11.0 fL 10/13/2023 4:50 PM CDT [facility] % NEUT 69.8 % 10/13/2023 4:50 PM CDT [facility] % LYMPH 22.0 % 10/13/2023 4:50 PM CDT [facility] % MONO 6.3 % 10/13/2023 4:50 PM CDT [facility] % EOS 1.6 % 10/13/2023 4:50 PM CDT [facility] % BASO 0.3 % 10/13/2023 4:50 PM CDT [facility] ABSOLUTE NEUTROPHILS 6.0 1.7 - 7.0 thou/cu mm 10/13/2023 4:50 PM CDT [facility] ABSOLUTE LYMPHOCYTES 1.9 0.9 - 2.9 thou/cu mm 10/13/2023 4:50 PM CDT [facility] ABSOLUTE MONOCYTES 0.5 <0.9 thou/cu mm 10/13/2023 4:50 PM CDT [facility] ABSOLUTE EOSINOPHILS 0.1 <0.5 thou/cu mm 10/13/2023 4:50 PM CDT [facility] ABSOLUTE BASOPHILS 0.0 <0.3 thou/cu mm 10/13/2023 4:50 PM CDT [facility] Blood BLOOD SPECIMEN / Unknown Venipuncture / Unknown 10/13/2023 4:40 PM CDT 10/13/2023 4:45 PM CDT Dorota Loera MD HEMATOLOGY Performing Organization Address [facility] [address]/[facility] Co de Phone Number [facility] [address] [place] [address], * TSH WITH REFLEX (10/13/2023 4:40 PM CDT) TSH 2.43 0.27 - 4.20 uIU/mL 10/14/2023 2:07 PM CDT [facility] Blood BLOOD SPECIMEN / Unknown Venipuncture / Unknown 10/13/2023 4:40 PM CDT 10/13/2023 4:45 PM CDT Narrative [facility] - 10/14/2023 2:07 PM CDT In Adults, TSH values between 5.00 and 10.00 uIU/ml do not necessarily indicate the presence of Hypothyroidism. Correlation with clinical findings such as presence of goiter and/or Thyroperoxidase (TPO) Antibody may be helpful. For more information please refer to ROCCO 2004; 291: 228-238. Dorota Loera MD CHEMISTRY Performing Organization Address City/[facility] [address]/[facility] Co de Phone Number [facility] [address] [place] [id number], * LIPID PANEL W REFLEX MEASURED LDL (10/13/2023 4:40 PM CDT) CHOLESTEROL,TOTAL 147 100 - 199 mg/dL 10/14/2023 2:07 PM CDT [facility] Comment: Cholesterol, Total Reference Ranges Desirable <200 mg/dL Borderline 200-239 mg/dL High >=240 mg/dL TRIGLYCERIDES 144 <150 mg/dL 10/14/2023 2:07 PM CDT [facility] HDL CHOLESTEROL 45 >40 mg/dL 2:07 PM CDT [facility] NON-HDL CHOLESTEROL 102 <145 mg/dl 10/14/2023 2:07 PM CDT [facility] CHOL/HDL RATIO 3.27 <4.50 10/14/2023 2:07 PM CDT [facility] LDL CHOLESTEROL 73 <=130 mg/dL 10/14/2023 2:07 PM CDT [facility] VLDL CHOLESTEROL 29 <=30 mg/dL 10/14/2023 2:07 PM CDT [facility] PROVIDER ORDERED STATUS RANDOM 10/14/2023 2:07 PM CDT [facility] Blood BLOOD SPECIMEN / Unknown Venipuncture / Unknown 10/13/2023 4:40 PM CDT 10/13/2023 4:45 PM CDT Dorota Loera MD CHEMISTRY Performing Organization Address City/[facility] [address]/ZIP Co de Phone Number [facility] [address] [place] [address], * (ABNORMAL) C-REACTIVE PROTEIN (10/13/2023 4:40 PM CDT) C-REACTIVE PROTEIN 1.4(H) <0.5 mg/dL 10/14/2023 2:07 PM CDT [facility] Blood BLOOD SPECIMEN / Unknown Venipuncture / Unknown 10/13/2023 4:40 PM CDT 10/13/2023 4:45 PM CDT Dorota Loera MD CHEMISTRY Performing Organization Address City/[facility] [address]/ZIP Co de Phone Number [facility] [address] [place] [address], * (ABNORMAL) PROTIME-INR (10/13/2023 4:40 PM CDT) INR 2.6(H) <1.3 10/13/2023 9:23 PM CDT [facility] PROTIME 28.3(H) 10.3 - 12.3 sec 10/13/2023 9:23 PM CDT [facility] Blood BLOOD SPECIMEN / Unknown Venipuncture / Unknown 10/13/2023 4:40 PM CDT 10/13/2023 4:45 PM CDT Narrative [facility] - 10/13/2023 9:23 PM CDT ?Therapeutic Range 2.0-3.0 for most anticoagulated patients 2.5-3.5 or 4.0 for high risk patients The INR is only used for patients on stable oral anticoagulant therapy. It makes no significant contribution to the diagnosis or treatment of patients whose Protime is prolonged for other reasons. INR results are increased when heparin levels exceed 1.0 U/mL, which corresponds to an aPTT >125 seconds if the patient is on UFH. Dorota Loera MD HEMATOLOGY [facility] [address] [place] [address], * (ABNORMAL) BASIC METABOLIC PANEL (10/13/2023 4:40 PM CDT) SODIUM 137 136 - 145 mmol/L 10/14/2023 2:07 PM CDT [facility] POTASSIUM 4.2 3.5 - 5.1 mmol/L 10/14/2023 2:07 PM CDT [facility] CHLORIDE 99 98 - 107 mmol/L 10/14/2023 2:07 PM CDT [facility] CO2,TOTAL 27 22 - 29 mmol/L 10/14/2023 2:07 PM CDT [facility] ANION GAP 11 5 - 18 10/14/2023 2:07 PM CDT [facility] GLUCOSE 113(H) 70 - 99 mg/dL 10/14/2023 2:07 PM CDT [facility] CALCIUM 9.2 8.8 - 10.2 mg/dL 10/14/2023 2:07 PM CDT [facility] BUN 19 8 - 23 mg/dL 10/14/2023 2:07 PM CDT [facility] CREATININE 1.01(H) 0.50 - 0.90 mg/dL 10/14/2023 2:07 PM CDT [facility] BUN/CREAT RATIO 19 10 - 20 2:07 PM CDT [facility] eGFR 62(L) >90 mL/min/1.7 3m2 10/14/2023 2:07 PM CDT [facility] Comment:As of 2021, eG FR is calculated by the CKD-EPI creatinine equation without race adjustment. ??eGFR can be influenced by muscle mass, exercise, and diet. ??The reported eGFR is an estimation only and is only applicable if the renal function is stable. Blood BLOOD SPECIMEN / Unknown Venipuncture / Unknown 10/13/2023 4:40 PM CDT 10/13/2023 4:45 PM CDT Dorota Loera MD CHEMISTRY [facility] [address] [place] [id number], * (ABNORMAL) INR,POCT (09/16/2023 3:18 PM CDT) Only the most recent of2 resultswithin the time period is included. INR 2.0(H) <1.3 09/16/2023 3:21 PM CDT [facility] Blood BLOOD SPECIMEN / Unknown 09/16/2023 3:18 PM CDT 09/16/2023 3:21 PM CDT Narrative [facility] - 09/16/2023 3:21 PM CDT ?Therapeutic Range 2.0-3.0 for most anticoagulated patients 2.5-3.5 or 4.0 for high risk patients Dorota Loera MD LABORATORY [facility] [address] [place] [address], * URINE ALBUMIN TO CREATININE RATIO, RANDOM (09/07/2023 7:07 AM CDT) ALB RAND URINE 13.3 mg/L 09/07/2023 5:53 PM CDT [facility] CREATININE,URIN E 1.19 g/L 09/07/2023 5:53 PM CDT [facility] ALBUMIN TO CREATININE RATIO,RAND UR 11.2 <30.0 mg/g creat 09/07/2023 5:53 PM CDT [facility] Urine URINE SPECIMEN / Unknown Non-Blood / Unknown 09/07/2023 7:07 AM CDT 09/07/2023 7:07 AM CDT Narrative [facility] - 09/07/2023 5:53 PM CDT If Albumin to Creatinine Ratio is elevated, consider the following: ? Elevations seen with incipient nephropathy associated ?? with diabetes mellitus or hypertension. Stress, exercise,hematuria, ?? and urinary tract infection may also produce elevated results. If clinically indicated, confirm with ?24 Hour Albumin to Creatinine Ratio. ?? Dorota Loera MD URINE Performing Organization Address City/[facility] [address]/ZIP Co de Phone Number [facility] [address] [place] [address], * SCAN-CT INTERPRETATION (08/30/2023 12:00 AM CDT) Anatomical Region Laterality Modality Other Scanner OTHER * XR MAMMO BILAT SCREENING (11/28/2022 2:11 [...] health care provider. XR MAMMO BILAT SCREENING [[id number]] CLINICAL HISTORY: ??This is an asymptomatic 62 y.o. patient. INDICATION FOR EXAM: Mammogram Screening. TECHNIQUE: CC & MLO views were obtained. ??This study was evaluated with the assistance of Computer-Aided Detection. COMPARISON FILM: Yes 11/15/21 [facility] [employer] 09/26/20 [facility] FINDINGS: ??The breasts have scattered areas of fibroglandular density. There are no dominant masses, suspicious micro calcifications or areas of architectural distortion. Dorota Loera MD MAMMO * ANTI HCV (07/11/2019 4:20 PM OVERHEAD LINE WORKER) HEPATITIS C ANTIBODY Non-React amisha Non-React amisha 07/12/2019 5:27 PM OVERHEAD LINE WORKER [facility] Comment:Antibodies to HCV no t detected; does not exclude the possibility of exposure to HCV. Blood BLOOD SPECIMEN / Unknown Venipuncture / Unknown 07/11/2019 4:20 PM OVERHEAD LINE WORKER 07/11/2019 4:23 PM OVERHEAD LINE WORKER Dorota Loera MD SEND OUTS [facility] [address] [place] [address], [place] from Last 3 Months or Most Recently [...] 4:47 AM 04/04/2005 12:16 PM Care Teams [employer] Fl[employer] Specialist Relationship Specialty Start Date End Date Dorota Loera MD [address] [place] [address] PCP - General 06/17/04 Henry Alex MD [address] [place] [address] Rheumatology Rheumatology 05/19/12
--- OUTSIDE RECORDS SUMMARY | 2023-10-19 08:06 | XMS_ITS | Continuity of Care Document ---
Author Organization [facility] Address [address] [place] [address] Phone Care Team Providers Care Crinkling Machine Operator Name Role Phone Anum Chen MD Unavailable Unavailable Allergies, Adverse Reactions, Alerts Substance Reaction Status Criticality HYDROXYCHLOROQUINE SULFATE Active N o Information morphine Active No Information Medications Medication Instructions Dosage Effective Dates (start - stop) Status Comments levothyroxine 137 mcg tablet take 1 tablet by oral route every day 137 MCG - Active Cartia XT 120 mg capsule,extended release take 1 capsule by oral route every day 120 MG - Active warfarin 10 mg tablet 1.5 tablets Sun & Wed, 1 tablet Mon, , , Fri & Sat - Active Miscellaneous ORAL TABLET Bifido Balance 600 mg, 2 capsules daily - Active clindamycin HCl 150 mg capsule take 1 capsule by oral route every 6 hours 150 MG - Active Vitamin D3 5,000 unit tablet take 1 by Oral route once 1 - Active duloxetine 20 mg capsule,delayed release take 1 capsule by oral route every day 20 MG - Active azathioprine 50 mg tablet take 3 tablet by oral route every day 150 MG - Active prednisone 5 mg tablet take 1 tablet by oral route every day 5 MG - Active Tylenol Extra Strength 500 mg tablet take 2 tablet by oral route every 6 hours as needed 1000 MG - Active Procedures Procedure Date Office Consultation [...] mL/min/ 1.73 m2 Final If patient is -[place] multiply result by 1.210 Panel Description: CRP [...] 0 Final The increase i n the yhiha-0-icjlnumjz may bedue to increased sywmt-1-zwsitawllfo , an acutephase reactant protein. No monoclonal [...] = 1.0 Antibody Detected Autoantibodies to proteinase-3 (KS-3) are accepted ascharacteristic for granulomatosis with polyangiitis(GPA, Katya's), and are detectable in 95% of thehistologically proven cases. The cytoplasmic IFApattern, (c-ANCA), is based largely on autoantibody toPR-3 which serves as the primary antigen.These autoantibodies are present in active disease. Panel Description: [id number] ENZY ME Final [id number]-4-UFB VERTING ENZYME 2017 09:41:0 0 68 U/L [...] [facility] , [address], [place], [address], [place] tel:[phone] [facility] , possible connective tissue disease (chief complaint) Rash and other nonspecific skin eruptionPleu risyAbnormal immunologica l finding in serum, unspecified 201 [address] April Rowan. [facility] [address], [place], [address], [place]. tel:[phone] Referring Provider: Anum Husesin, [facility] [address], [place], [address]. tel:[phone] [facility] , [address], [place], [address], [place] tel:[phone] [facility] , No Information [address]. [facility] [address], [place], [address], [place]. tel:[phone] Family History Family Member Type Diagnosis Age At Onset No Information Payers Payer name Insurance type Covered democrat ID Asad thurman(s) [facility] [id number] Social History Type Description Quantity Date Captured [...]
--- OUTSIDE RECORDS SUMMARY | 2023-10-19 08:06 | XMS_ITS | Encounter Summary ---
Author Organization [facility] Address [address] [place] [address] Care Team Providers Care Safety Deposit Clerk Name Role Phone Unavailable Primary Care Provider Unavailabl e Reason for Visit * Reason Onset Date Comments Pre-visit Intake 08/14/2023 Encounter Details Date Type Department Care Team (Latest Contact Info) Description 08/14/2023 10:00 AM CDT Clinical Communication Virtual Review in [place], [place] [address] [place] [address] Pre-visit Intake Social History Tobacco Use Types [...] than three times a week 12/31/2018 Attends [employer] More than 4 times per year [...] Living Expenses Not hard at all 12/31/2018 [facility] [place] [facility] - Occupational Stress [...] Master's degree (e.g., MA, MS, Murphy, MEd, BANDSAW [employer]PERATOR, BRIAN) 12/31/2018 Sex and Gender Information Value Date Recorded Sex Assigned at Female 06/22/2018 1:14 PM CHEESE SPECIALIST Gender Identity Female 06/22/2018 1:14 PM CHEESE SPECIALIST Sexual Orientation Straight 06/22/2018 1: 14 PM CHEESE SPECIALIST documented as of this encounter Plan of Treatment Not on file documented as of this encounter Goals Goal Patient Goal Type Associated Problems Recent Progress Patient-Stated? Author 3rd Opinion General Yes Rhonda Villalta, M.S.N., R.N. Note: Patient has seen Dr. Alex in [place] and Dr. Chen in [place] for Rheumatology care. She has been told many diagnosis' (including CTD, Sarcoidosis, Lupus and Panniculitis). She is wanting our opinion and some help with Diagnosis and future treatment recommendations. documented as of this encounter Visit Diagnoses Not on filedocumented in this encounter
[2023-10-19] MEDS: LACTATED RINGERS 1000 ML 1,000 ML 100 ML IV (08:30)
[2023-10-19 08:36] VITALS: BP 151/77; PULSE 53; RESP 16; TEMP 36.5; O2SAT 96; BMI 48.2
[2023-10-19] MEDS: SODIUM CHLORIDE 0.9 % (FLUSH) 10 ML SYRINGE IVF (08:42)
--- NOTE | 2023-10-19 09:15 | CRLHL7_ITS ---
For Patients: As a result of the Century Cures Act, medical imaging exams and procedure reports are released immediately into your electronic medical record. You may view this report before your referring provider. If you have questions, please contact your health care provider. INDICATION: First MP joint fusion right foot; intraoperative fluoroscopy. Findings : 24 seconds of fluoroscopy time was used. Fluoroscopic images reveal hardware across the metatarsophalangeal articulation right great toe with anatomic alignment. Dictated by Abiodun Reis MD @ 10/21/2023 9:59:01 AM (Electronically Signed)
[2023-10-19] MEDS: BUPIVACAINE 0.25% 30 ML INJECTION (09:45)
[2023-10-19] MEDS: CEFAZOLIN 2 GM INJ IVP (09:55)
--- NOTE | 2023-10-19 10:09 | W.ANESCHARGE ---
Anesthesia Charges Start Date/Time Anesthesia Start Date: 10/19/23 Anesthesia Start Time: 09:50 Stop Date/Time Anesthesia Stop Date: 10/19/23 Anesthesia Stop Time: 11:26
--- NOTE | 2023-10-19 11:29 | W.PODPROC_ITS ---
Date of Procedure: 10/19/23 Surgeon: Aaron Singh DPM Pre-op Diagnosis: Hallux valgus with bunion right Post-op Diagnosis: Hallux valgus with bunion right Type of Procedure: 1st MPJ fusion right Indications: Patient has had ongoing pain due to bunion deformity on the right foot. She has elected surgical correction. Reviewed the procedure, recovery, expectations potential complications. These include but are not limited to: Poor wound healing, infection, under correction, over correction, nonunion, hardware irritation, nerve injury, CRPS, deep venous from thrombosis, pulmonary embolism possible . She understands risks written consent was obtained. Site marked. Procedure Description: Patient brought up room placed supine position on operating table. IV sedation was initiated local anesthetic injected in the right foot. She was prepped and draped in a sterile fashion. Standard time-out protocol followed. The right foot was exsanguinated the ankle tourniquet inflated to 250 mm Hg. Dorsal linear incision made over the 1st metatarsophalangeal joint. The incision was carried down through skin subcutaneous tissues. Linear capsular and periosteal incision was made these tissues reflected away from the head of the 1st metatarsal and proximal phalangeal base. Guide pin was placed in the 1st metatarsal head an 18 mm Reamer was used to remove the cartilage and subchondral bone. Guide pin was removed and placed in the base of the proximal phalanx the corresponding 18 mm Reamer was used to remove the cartilage and subchondral bone. Wound was irrigated normal sterile saline. Opposing fusion surfaces were fenestrated with K-wire. Weightbearing was simulated with instrument merino lid and the hallux was positioned optimally. It was then temporarily fixated with a K-wire. C-arm confirmed position. 3.0 mm cannulated headless screw was inserted using standard technique. A dorsal based 6 hole plate was then applied with 3 locking screws distally and 2 locking screws proximal. An additional nonlocking screw was placed proximal. 1st metatarsal head was remodeled with a rotary bur. C-arm confirmed excellent correction. Wound irrigated with normal sterile saline. Capsular tissue repaired with 3-0 Vicryl. Subcutaneous tissues reapproximated 4-0 Monocryl and skin closed with 4-0 Prolene. Sterile dressing was then applied and she was placed in a well-padded cam boot. She was transferred from OR to PACU vital signs stable vascular status intact to the the right foot. She will be discharged per Anesthesia. She is given both verbal and written instructions given. She is given oxycodone for pain. She is weight -bearing to the heel in the Cam boot with crutches. She will follow-up in 2 days. Anesthesia: MAC and local Hemostasis: ankle Estimated blood loss (mL): 2 Implants: Arthrex 6 hole 1st MPJ fusion plate x1, 3.0 mm locking screws x5, 3.0 mm nonlocking screw x1, 3.0 mm headless cannulated screw x1. Specimens: none sent Disposition: same day
[2023-10-19 11:30] VITALS: BP 117/62; PULSE 58; RESP 16; TEMP 36.3; O2SAT 96
[2023-10-19 11:45] VITALS: BP 120/75; PULSE 62; RESP 16; O2SAT 96
[2023-10-19 12:00] VITALS: BP 122/80; PULSE 65; RESP 16; O2SAT 96
[2023-10-19 12:15] VITALS: BP 120/81; PULSE 60; RESP 16; O2SAT 96
[2023-10-19 12:34] VITALS: BP 122/80; PULSE 65; RESP 16; O2SAT 96
--- NOTE | 2023-10-20 10:39 | W.ANESCHARGE ---
Anesthesia Charges Start Date/Time Anesthesia Start Date: 10/19/23 Anesthesia Start Time: 09:50 Stop Date/Time Anesthesia Stop Date: 10/19/23 Anesthesia Stop Time: 11:26
== END 2023-10-19 12:46 | disposition home or self-care (01) ==
LOC: OR 08:02
PROVIDERS: PCP Family Medicine; Visit Provider Podiatrist
PROC: (CPT 28740; principal; 2023-10-19 09:15)
DX: M20.11 Hallux valgus (acquired), right foot (principal); M21.611 Bunion of right foot; M77.41 Metatarsalgia, right foot
CPT/HCPCS: 28750; 01480; 73620; 97116; 97161; A4580; C1713; J0665; J0690; J1100; J1885; J2405; J2704; J3010; J3490; J7120